=== PATIENT | female | born 1935 | race Caucasian/White ===

== ENCOUNTER 2018-02-24 11:25 | Inpatient (IN) | payer MEDICARE, MEDICAID ==
[2018-02-24 11:36] VITALS: BMI 25.4
--- NOTE | 2018-02-24 12:15 | ED PDOC ---
Arrival/HPI - General Chief Complaint: Anxiety Time Seen by Provider: 02/24/18 11:38 Historian: Patient - History of Present Illness Narrative History of Present Illness (Text): 02/24/18 12:10 A 82 year old female, whose past medical history includes AMS and hypertension, presents to the emergency department via EMS after patient's neighbor found the patient was found locked out of the house. The patient states she went to go visit her who lives in a [facility] and when she returned home she was locked out. She notes that last night she was anxious and was unable to sleep, she attempted to drink water, but was unable to keep it down. The patient is currently complaining of diffuse abdominal tenderness, no other complaints at this time. Time/Duration: 4-6 hours Symptom Onset: Gradual Symptom Course: Unchanged Severity Level: Mild Activities at Onset: Emotional Upset Context: Home Past Medical History - Provider Review Nursing Documentation Reviewed: Yes - Infectious Disease Hx of Infectious Diseases: None - Cardiac Hx Cardiac Disorders: Yes Hx Hypertension: Yes - Pulmonary Hx Respiratory Disorders: No - Neurological Hx Neurological Disorder: Yes Hx Dementia: Yes - HEENT Hx HEENT Disorder: No - Renal Hx Renal Disorder: No - Endocrine/Metabolic Hx Endocrine Disorders: Yes Hx Diabetes Mellitus Type 2: Yes - Hematological/Oncological Hx Blood Disorders: No - Integumentary Hx Dermatological Disorder: No - Musculoskeletal/Rheumatological Hx Musculoskeletal Disorders: No - Gastrointestinal Hx Gastrointestinal Disorders: Yes Hx Diarrhea: Yes - Genitourinary/Gynecological Hx Genitourinary Disorders: No - Psychiatric Hx Psychophysiologic Disorder: Yes Hx Anxiety: Yes Hx Substance Use: No - Anesthesia Hx Anesthesia: No Hx Anesthesia Reactions: No Hx Malignant Hyperthermia: No - Suicidal Assessment Feels Threatened In Home Enviroment: No Family/Social History - Physician Review Nursing Documentation Reviewed: Yes Family/Social History: No Known Family HX Smoking Status: Never Smoked Hx Alcohol Use: No Hx Substance Use: No Hx Substance Use Treatment: No Allergies/Home Meds Allergies/Adverse Reactions: Allergies amoxicillin [From Amoxil] Allergy (Verified 02/24/18 11:28) RASH ciprofloxacin Adverse Reaction (Verified 02/24/18 18:38) REDNESS Home Medications: Home Meds Medication Instructions Recorded Confirmed Calcium Carbonate [Calcium] 600 mg PO DAILY 01/17/16 02/24/18 Donepezil [Aricept] 10 mg PO DAILY 01/17/16 02/24/18 Lisinopril [Zestril] 30 mg PO DAILY 01/17/16 02/24/18 Pravastatin Sodium [Pravachol] 20 mg PO DAILY 01/17/16 02/24/18 Zolpidem [Ambien] 10 mg PO PRN PRN 01/17/16 02/24/18 Review of Systems - Physician Review All systems were reviewed & negative as marked: Yes - Review of Systems Constitutional: absent: Fevers Cardiovascular: absent: Chest Pain Gastrointestinal: Abdominal Pain Psychiatric: Anxiety Physical Exam Vital Signs Reviewed: Yes Vital Signs Temp Pulse Resp BP Pulse Ox 02/24/18 12:40 119 H 22 127/76 94 L 02/24/18 11:26 97.8 F 125 H 24 144/80 95 Temperature: Afebrile Blood Pressure: Normal Pulse: Tachycardic Respiratory Rate: Normal Appearance: Positive for: Well-Appearing, Non-Toxic, Comfortable Pain Distress: None Mental Status: Positive for: Alert and Oriented X 3 - Systems Exam Head: Present: Atraumatic, Normocephalic Pupils: Present: PERRL Extroacular Muscles: Present: EOMI Conjunctiva: Present: Normal Mouth: Present: Moist Mucous Membranes Neck: Present: Normal Range of Motion Respiratory/Chest: Present: Clear to Auscultation, Good Air Exchange. No: Respiratory Distress, Accessory Muscle Use Cardiovascular: Present: Regular Rate and Rhythm, Normal S1, S2. No: Murmurs Abdomen: Present: Tenderness (diffuse abdominal tenderness ), Distention, Other (decreased bowel sounds). No: Peritoneal Signs Back: Present: Normal Inspection Upper Extremity: Present: Normal Inspection. No: Cyanosis, Edema Lower Extremity: Present: Normal Inspection. No: Edema Neurological: Present: GCS=15, CN II-XII Intact, Speech Normal Skin: Present: Warm, Dry, Normal Color. No: Rashes Psychiatric: Present: Alert, Oriented x 3, Normal Insight, Normal Concentration Medical Decision Making ED Course and Treatment: 02/24/18 12:17 Impression: A 82 year old female with abdominal tenderness and anxiety. Differential Diagnosis included but are not limited to: Abdominal vs. Anxiety Plan: -- Abd & Pel CT -- Labs -- CXR -- Urinalysis -- Reassess and disposition Progress Notes: The patients family members have been contact and made aware of patient's condition and able to slate picker the patient from the hospital. 02/24/18 13:[address] results showing a small bowel obstruction. residential appliance repair technician was paged and case discussed with Dr. De Santiago for admission. Fluids and antibiotics have already been started. 02/24/18 16:28 Chest X-ray reviewed shows: LUNGS: No active pulmonary disease. PLEURA: No significant pleural effusion identified, no pneumothorax apparent. CARDIOVASCULAR: No radiographic findings to suggest acute or significant cardiovascular disease. OSSEOUS STRUCTURES: No significant abnormalities. VISUALIZED UPPER ABDOMEN: Normal. OTHER FINDINGS: None. IMPRESSION: No active disease. No significant interval change compared to the prior examination(s). 02/24/18 16:56 - Lab Interpretations Lab Results: 02/24/18 12:20 02/24/18 12:30 Lab Results 02/24/18 13:00: pO2 117 H, VBG pH 7.28 L, VBG pCO2 27.0 L, VBG HCO3 12.7 L, VBG Total CO2 13.5 L, VBG O2 Sat (Calc) 97.8 H, VBG Base Excess -12.4 L, VBG Potassium 3.3 L, Glucose 252 H, Lactate 9.6 H*, FiO2 21.0, Sodium 138.0, Chloride 102.0, Venous Blood Potassium 3.3 L 02/24/18 12:35: Urine Color Dark yellow, Urine Appearance Slight-cloudy, Urine pH 5.5, Ur Specific Vale 1.025, Urine Protein 100 H, Urine Glucose (UA) 100 H , Urine Ketones 15 H, Urine Blood Trace-intact H, Urine Nitrate Positive H, Urine Bilirubin Moderate H, Urine Urobilinogen 2.0 H, Ur Leukocyte Esterase Trace H, Urine RBC 0 - 2, Urine WBC 0 - 2, Ur Epithelial Cells 0 - 2, Urine Bacteria Small 02/24/18 12:30: Lactate Dehydrogenase 604, Total Creatine Kinase 81, Troponin I 0.09 D 02/24/18 12:30: Sodium 141, Potassium 3.6, Chloride 103, Carbon Dioxide 11 L, Anion Gap 30 H, BUN 31 H, Creatinine 1.1, Est GFR ( Amer) 58, Est GFR ( Non-Af Amer) 48, Random Glucose 286 H, Calcium 10.8 H, Total Bilirubin 0.9, AST 51 H, ALT 30, Alkaline Phosphatase 104, Total Protein 8.3, Albumin 4.6, Globulin 3.7, Albumin/Globulin Ratio 1.2, Lipase 72 02/24/18 12:20: WBC 14.5 H D, RBC 4.98, Hgb 15.5, Hct 45.6, MCV 91.6, MCH 31.1, MCHC 34.0, RDW 14.4, Plt Count 332, MPV 11.4 H, Gran % 89.1 H, Lymph % (Auto) 5.7 L, Lucas % (Auto) 5.1, Eos % (Auto) 0.0 L, Baso % (Auto) 0.1, Gran # 12.88 H , Lymph # (Auto) 0.8 L, Lucas # (Auto) 0.7 H, Eos # (Auto) 0.0, Baso # (Auto) 0.01 - RAD Interpretation Radiology Orders: 02/24/18 11:53 ABD & PELVIS IV CONTRAST ONLY [CT] Stat 02/24/18 13:05 CHEST PORTABLE [RAD] Stat - Medication Orders Current Medication Orders: Hydromorphone HCl (Dilaudid) 0.5 mg IVP Q4H PRN PRN Reason: Pain, severe (8-10) Last Admin: 02/24/18 18:09 Dose: 0.5 mg MAR Pain Assessment Document 02/24/18 18:09 MMA (Rec: 02/24/18 18:09 MMA ADMIN-PC) Pain Reassessment Is this a pain reassessment? No Sleep Is patient sleeping during reassessment? No Presence of Pain Presence of Pain Yes Pain Scale Used Pain Scale Used Numeric Location Left, Right or Bilateral Bilateral Upper or Lower Upper Pain Location Body Site Abdomen Description Description Intermittent Intensity of Pain at present 8 IVP Administration Document 02/24/18 18:09 MMA (Rec: 02/24/18 18:09 MMA ADMIN-PC) Charges for Administration # of IVP Administrations 1 Metronidazole (Flagyl) 500 mg in 100 mls @ 100 mls/hr IVPB Q8 CLAUDINE PRN Reason: Protocol Pantoprazole Sodium (Protonix 40mg Ivpb) 40 mg in 100 mls @ 20 mls/hr IVPB .Q5H CLAUDINE Last Admin: 02/24/18 17:41 Dose: 20 mls/hr eMAR Start Stop Document 02/24/18 17:41 MMA (Rec: 03/31/18 17:41 MMA ADMIN-PC) Intravenous Solution Start Date 02/24/18 Start Time 17:41 End Date 02/24/18 Meropenem (Merrem Iv 1 Gm Premix) 50 mls @ 100 mls/hr IVPB Q12 CLAUDINE PRN Reason: Protocol Stop: 03/05/18 21:21 Ondansetron HCl (Zofran Inj) 4 mg IVP Q4 PRN PRN Reason: Nausea/Vomiting Discontinued Medications Hydromorphone HCl (Dilaudid) 1 mg IVP STAT STA Stop: 02/24/18 21:04 Sodium Chloride (Sodium Chloride 0.9%) 1,000 mls @ 125 mls/hr IV .Q8H ONE Stop: 02/24/18 21:03 Last Admin: 02/24/18 13:44 Dose: 125 mls/hr eMAR Start Stop Document 02/24/18 13:44 SRE (Rec: 02/24/18 13:45 SRE [id number]) Intravenous Solution Start Date 02/24/18 Start Time 13:10 End Date 02/24/18 End time 17:10 Total Infusion Time 240 Sodium Chloride (Sodium Chloride 0.9%) 1,000 mls @ 999 mls/hr IV .Q1H1M STA Stop: 02/24/18 14:36 Last Admin: 02/24/18 13:46 Dose: 999 mls/hr eMAR Start Stop Document 02/24/18 13:46 SRE (Rec: 02/24/18 13:46 SRE [id number]) Intravenous Solution Start Date 02/24/18 Start Time 13:46 End Date 02/24/18 End time 14:50 Total Infusion Time 64 Ciprofloxacin (Cipro 400mg/200ml Dsw) 400 mg in 200 mls @ 133.333 mls/hr IVPB STAT STA PRN Reason: Protocol Stop: 02/24/18 15:19 Last Admin: 02/24/18 15:42 Dose: 133.333 mls/hr eMAR Start Stop Document 02/24/18 15:42 SRE (Rec: 02/24/18 15:44 SRE [id number]) Intravenous Solution Start Date 02/24/18 Start Time 15:44 End Date 02/24/18 End time 16:45 Total Infusion Time 61 Metronidazole (Flagyl) 500 mg in 100 mls @ 100 mls/hr IVPB STAT STA PRN Reason: Protocol Stop: 02/24/18 14:49 Last Admin: 02/24/18 14:24 Dose: 100 mls/hr eMAR Start Stop Document 02/24/18 14:24 SRE (Rec: 02/24/18 14:25 SRE [id number]) Intravenous Solution Start Date 02/24/18 Start Time 14:24 End Date 02/24/18 End time 15:20 Total Infusion Time 56 Ceftriaxone Sodium 500 mg/ (Sodium Chloride) 50 mls @ 100 mls/hr IVPB Q24H CLAUDINE PRN Reason: Protocol Last Admin: 02/24/18 17:41 Dose: 100 mls/hr eMAR Start Stop Document 02/24/18 17:41 MMA (Rec: 02/24/18 17:41 MMA ADMIN-PC) Intravenous Solution Start Date 02/24/18 Start Time 17:41 End Date 02/24/18 End time 18:11 Total Infusion Time 30 Ketorolac Tromethamine (Toradol) 15 mg IVP STAT STA Stop: 02/24/18 15:15 Last Admin: 02/24/18 15:44 Dose: 15 mg MAR Pain Assessment Document 02/24/18 15:44 SRE (Rec: 02/24/18 15:45 SRE [id number]) Pain Reassessment Is this a pain reassessment? Yes Sleep Is patient sleeping during reassessment? No Presence of Pain Presence of Pain Yes Pain Scale Used Pain Scale Used Numeric Location Pain Location Body Site Abdomen IVP Administration Document 02/24/18 15:44 SRE (Rec: 02/24/18 15:45 SRE [id number]) Charges for Administration # of IVP Administrations 1 Methylprednisolone (Solu-Medrol) 100 mg IVP ONCE ONE Stop: 02/24/18 18:44 Last Admin: 02/24/18 18:54 Dose: 100 mg IVP Administration Document 02/24/18 18:54 MMA (Rec: 02/24/18 18:54 MMA ADMIN-PC) Charges for Administration # of IVP Administrations 1 Sodium Bicarbonate (Sodium Bicarbonate 8.4% (50 Meq) Syringe) 50 meq IVP ONCE ONE Stop: 02/24/18 17:21 Last Admin: 02/24/18 17:40 Dose: 50 meq IVP Administration Document 02/24/18 17:40 MMA (Rec: 02/24/18 17:40 [facility] ADMIN-PC) Charges for Administration # of IVP Administrations 1 - Scribe Statement The provider has reviewed the documentation as recorded by the Crowib[place]ul Singer Provider Scribe Attestation: All medical record entries made by the Scribe were at my direction and personally dictated by me. I have reviewed the chart and agree that the record accurately reflects my personal performance of the history, physical exam, medical decision making, and the department course for this patient. I have also personally directed, reviewed, and agree with the discharge instructions and disposition. Disposition/Present on Arrival - Present on Arrival Any Indicators Present on Arrival: No History of DVT/PE: No History of Uncontrolled Diabetes: No Urinary Catheter: No History of Decub. Ulcer: No History Surgical Site Infection Following: None - Disposition Have Diagnosis and Disposition been Completed?: Yes Diagnosis: Small bowel obstruction, Sepsis Disposition: HOSPITALIZED Disposition Time: 13:45 Condition: GUARDED
[2018-02-24 12:42] LABS: BASO # 0.01 K/mm3 (0.0-2.0); BASO % 0.1 % (0.0-3.0); GRAN # 12.88 (1.4-6.5); GRAN % 89.1 % (50.0-68.0); HEMOGLOBIN 15.5 g/dL (12.0-16.0); LYMPH # 0.8 (1.2-3.4); LYMPH % 5.7 % (22.0-35.0); MEAN CELL VOLUME 91.6 fl (80.0-105.0); MEAN CORPUSCULAR HEMOGLOBIN 31.1 pg (25.0-35.0); MEAN PLATELET VOLUME 11.4 fl (7.0-11.0); MONO # 0.7 (0.1-0.6); MONO % 5.1 % (1.0-6.0); RBC 4.98 10^6/uL (3.5-6.1); RED CELL DISTRIBUTION WIDTH 14.4 % (11.5-14.5); WHITE BLOOD COUNT 14.5 10^3/ul (4.5-11.0)
[2018-02-24 12:56] LABS: ALB/GLOB RATIO 1.2 (1.1-1.8); ALBUMIN 4.6 g/dL (3.0-4.8); CALCIUM 10.8 mg/dL (8.4-10.5)
[2018-02-24 13:00] LABS: PH,URINE 5.5 (4.7-8.0); URINE BILIRUBIN MODERATE (NEGATIVE); URINE BLOOD TRACE-INTACT (NEGATIVE); URINE GLUCOSE (UA) 100 mg/dL (NEGATIVE); URINE LEUKOCYTE ESTERASE TRACE Leu/uL (NEGATIVE); URINE PROTEIN 100 mg/dL (<30 mg/dL)
[2018-02-24] MEDS ORDERED: Sodium Chloride 0.9% 1,000 ML IV ONE (13:04)
[2018-02-24 13:07] LABS: URINE APPEARANCE SLIGHT-CLOUDY (CLEAR); URINE COLOR DARK YELLOW (YELLOW)
[2018-02-24] MEDS ORDERED: Iodixanol 320 MG/ML 100 ML BOTTLE IV ONE (13:08)
[2018-02-24 13:15] LABS: URINE BACTERIA SMALL (NEG); URINE EPITHELIAL CELLS 0 - 2 /hpf (0-5); URINE RBC 0 - 2 /hpf (0-2); URINE WBC 0 - 2 /hpf (0-6)
[2018-02-24 13:24] LABS: VENOUS BLOOD GAS BASE EXCESS -12.4 mmol/L (0.0-2.0); VENOUS BLOOD GAS PO2 117 mm/Hg (30-55); VENOUS BLOOD PH 7.28 (7.32-7.43)
[2018-02-24] MEDS ORDERED: Sodium Chloride 0.9% 1,000 ML IV STA (13:36)
--- NOTE | 2018-02-24 13:41 | PCM.SEPTIC ---
Sepsis Progress Note - Reassessment Type Reassessment Type: Non-invasive reassessment - Non Invasive Reassessment Were the most recent vital sign reviewed: Yes Vital Sign (Latest): Temp Pulse Resp BP Pulse Ox 97.8 F 119 H 22 127/76 94 L 02/24/18 11:26 02/24/18 12:40 02/24/18 12:40 02/24/18 12:40 02/24/18 12:40 Cardiovascular: Yes: Regular Rate, Rhythm Respiratory: Yes: Normal Breath Sounds Capillary Refill: Normal (Less than 2 sec) Skin: Normal Color
[2018-02-24 13:49] LABS: TROPONIN I 0.09 ng/mL
[2018-02-24] MEDS ORDERED: metroNIDAZOLE IV 500 mg/100 ml 500 MG/100 ML BAG IVPB STA (13:50)
[2018-02-24] MEDS ORDERED: Ciprofloxacin 400mg/200ml D5W 400 MG/200 ML BAG IVPB STA (13:50)
--- NOTE | 2018-02-24 13:58 | CT ---
PROCEDURE: CT Abdomen and Pelvis with contrast HISTORY: Diffuse abdominal pain, vomiting Relevant medical history: Sigmoid diverticulitis. COMPARISON: 01/27/2016. TECHNIQUE: Contrast dose: 100 cc Visipaque 320. Radiation dose: Total exam DLP = 412.66 mGy-cm. This CT exam was performed using one or more of the following dose reduction techniques: Automated exposure control, adjustment of the mA and/or kV according to patient size, and/or use of iterative reconstruction technique. FINDINGS: LOWER THORAX: Hiatal hernia, thickening of the intrathoracic extension of the stomach which may reflect a component of mild gastritis/ esophagitis. LIVER: Hepatic steatosis. No focal masses. No intrahepatic bile duct dilatation or perihepatic ascites. GALLBLADDER AND BILE DUCTS: Dilated gallbladder. PANCREAS: Mildly atrophic pancreas. . No gross lesion or ductal dilatation. SPLEEN: Unremarkable. ADRENALS: Unremarkable. No mass. KIDNEYS AND URETERS: Unremarkable. No hydronephrosis. No solid mass. Incidental finding(s): Multiple small bilateral renal cysts none larger than 1.5 cm. VASCULATURE: Unremarkable. No aortic aneurysm. BOWEL: Segmental narrowing of the sigmoid colon with proximal dilatation of colon and small bowel including an obstructing component. Proximally the small bowel of is disproportionally dilated and small bowel dilatation is also seen. APPENDIX: Normal appendixA normal appendix is not visualized. . PERITONEUM: Unremarkable. No free fluid. No free air. LYMPH NODES: Unremarkable. No enlarged lymph nodes. BLADDER: Unremarkable. REPRODUCTIVE: Unremarkable. Cystic fluid collection in the cul-de-sac/vicinity of left adnexa 2.7 x 4.6 cm. BONES: Mild loss of height L2 vertebral body progressive finding compared to the prior CT scan. L1 vertebral body hemangioma. OTHER FINDINGS: None. IMPRESSION: Segmental narrowing of the sigmoid at a site of prior diverticular disease/ diverticulitis. Proximal dilatation of the colon and small bowel identified indicative of earlier incomplete bowel obstruction. Underlying stricture, pathologic narrowing of the sigmoid should be considered. Additional benign and/or incidental findings described above. Communication of results: I discussed the findings with the attending physician in the emergency department Dr. Puneet Willis at 13:53 Final report available in the electronic medical record 13:59
--- NOTE | 2018-02-24 14:00 | RAD ---
HISTORY: r/o infiltrate COMPARISON: 01/17/2016 FINDINGS: LUNGS: No active pulmonary disease. PLEURA: No significant pleural effusion identified, no pneumothorax apparent. CARDIOVASCULAR: No radiographic findings to suggest acute or significant cardiovascular disease. OSSEOUS STRUCTURES: No significant abnormalities. VISUALIZED UPPER ABDOMEN: Normal. OTHER FINDINGS: None. IMPRESSION: No active disease. No significant interval change compared to the prior examination(s).
--- NOTE | 2018-02-24 15:38 | CARD ---
APPROVED REPORT EKG Measurement Heart [id number] <Conclusion> Sinus tachycardia Nonspecific ST abnormality Abnormal ECG
[2018-02-24] MEDS ORDERED: HYDROmorphone 0.5 mg/0.5 ml ISec IVP PRN (15:41)
--- NOTE | 2018-02-24 15:55 | CP.PCM.CON ---
History of Present Illness - History of Present Illness History of Present Illness: surgery 82 F w pmh of diverticulitis, SBO , laparoscopic incarcerated umbilical hernia repair with mesh came with sudden abdominal pain, nausea and vomiting that started yesterday. Pain is diffused. Pt also reports hematuria. Pt reports anorexia. Last BM was diarrhea yesterday. Non bloody. Pt had laparoscopic abdominal surgery in 2011 for incarcerated umbilical hernia. Pt takes Naproxen for pain. Denies fever, chills, chest pain, shortness of breath, hematochezia, recent weight loss. Reports that she had colonoscopy done in the past and was normal. She is tachycardic, WBC is 14.5. Lactate was 9.6. CT of abd shows narrowing on sigmoid colon with thicken wall, dilated SB and colon. NGT is placed in ED. put out about 300cc coffee ground color gasgtric fluids. PMH HTN PSH: laparoscpic hernia repair w mesh 2011 Med: Naproxen All: Amoxicillin Review of Systems - Review of Systems Review of Systems: see phi Past Patient History - Infectious Disease Hx of Infectious Diseases: None - Past Social History Smoking Status: Never Smoked - CARDIAC Hx Cardiac Disorders: Yes Hx Hypertension: Yes - PULMONARY Hx Respiratory Disorders: No - NEUROLOGICAL Hx Neurological Disorder: Yes Hx Dementia: Yes - HEENT Hx HEENT Problems: No - RENAL Hx Chronic Kidney Disease: No - ENDOCRINE/METABOLIC Hx Endocrine Disorders: Yes Hx Diabetes Mellitus Type 2: Yes - HEMATOLOGICAL/ONCOLOGICAL Hx Blood Disorders: No - INTEGUMENTARY Hx Dermatological Problems: No - MUSCULOSKELETAL/RHEUMATOLOGICAL Hx Musculoskeletal Disorders: No - GASTROINTESTINAL Hx Gastrointestinal Disorders: Yes Hx Diarrhea: Yes - GENITOURINARY/GYNECOLOGICAL Hx Genitourinary Disorders: No - PSYCHIATRIC Hx Psychophysiologic Disorder: Yes Hx Anxiety: Yes Hx Substance Use: No - SURGICAL HISTORY Hx Surgeries: No - ANESTHESIA Hx Anesthesia: No Hx Anesthesia Reactions: No Hx Malignant Hyperthermia: No Meds Allergies/Adverse Reactions: Allergies Allergy/AdvReac Type Severity Reaction Status Date / Time amoxicillin [From Amoxil] Allergy RASH Verified 02/24/18 11:28 - Medications Medications: Current Medications Hydromorphone HCl (Dilaudid) 0.5 mg IVP Q4H PRN PRN Reason: Pain, severe (8-10) Sodium Chloride (Sodium Chloride 0.9%) 1,000 mls @ 125 mls/hr IV .Q8H ONE Stop: 02/24/18 21:03 Last Admin: 02/24/18 13:44 Dose: 125 mls/hr Physical Exam - Constitutional Appears: In Acute Distress - Head Exam Head Exam: ATRAUMATIC, NORMAL INSPECTION, NORMOCEPHALIC - Eye Exam Eye Exam: EOMI, Normal appearance, PERRL Pupil Exam: NORMAL ACCOMODATION, PERRL - ENT Exam ENT Exam: Mucous Membranes Moist, Normal Exam Additional comments: NGT - Neck Exam Neck exam: Positive for: Normal Inspection - Respiratory Exam Respiratory Exam: Clear to Auscultation Bilateral, NORMAL BREATHING PATTERN - Cardiovascular Exam Cardiovascular Exam: Tachycardia, REGULAR RHYTHM - GI/Abdominal Exam GI & Abdominal Exam: Distended, Firm, Guarding, Tenderness. absent: Hernia, Mass, Soft - Rectal Exam Rectal Exam: NORMAL INSPECTION. absent: Black Stool, Bloody Stool, Hemorrhoids , Fecal Impaction Additional comments: normal tone, no mass palpable - Exam Exam: NORMAL INSPECTION - Extremities Exam Extremities exam: Positive for: full ROM, normal inspection - Back Exam Back exam: NORMAL INSPECTION - Neurological Exam Neurological exam: Alert, CN II-XII Intact, Normal Gait, Oriented x3, Reflexes Normal - Psychiatric Exam Psychiatric exam: Normal Affect, Normal Mood - Skin Skin Exam: Dry, Intact, Normal Color, Warm Results - Vital Signs Recent Vital Signs: Last Vital Signs Temp 97.8 F 02/24/18 11:26 Pulse 119 H 02/24/18 12:40 Resp 22 02/24/18 12:40 BP 127/76 02/24/18 12:40 Pulse Ox 94 L 02/24/18 12:40 - Labs Result Diagrams: 02/24/18 12:20 02/24/18 12:30 Assessment & Plan - Assessment and Plan (Free Text) Assessment: Bowel obstruction with circumferential sigmoid narrowing and w h/o abd surgery . can't r/o near obstructing colon mass She is tachycardic, WBC is 14.5. Lactate was 9.6. CT of abd shows narrowing on sigmoid colon with thicken wall, dilated SB and colon. -ICU management -Strict intake and ouput -NPO -IVF -ABX -GI consult to evaluate for circumferencial sigmoid wall thickening and narrowing -NGT to suction -Serial abdominal exam Will dW Dr. Pérez
[2018-02-24] MEDS ORDERED: Lidocaine 2% Jelly (Uro-Jet) TOP ONE (16:14)
[2018-02-24 16:34] LABS: VENOUS BLOOD GAS BASE EXCESS -13.5 mmol/L (0.0-2.0); VENOUS BLOOD GAS PO2 57 mm/Hg (30-55)
[2018-02-24 16:41] LABS: VENOUS BLOOD PH 7.19 (7.32-7.43)
--- NOTE | 2018-02-24 16:50 | RAD ---
HISTORY: NGT placement COMPARISON: February 24, 2018. Time of the most recent examination: 13:36 FINDINGS: LUNGS: No active pulmonary disease. PLEURA: No significant pleural effusion identified, no pneumothorax apparent. CARDIOVASCULAR: No radiographic findings to suggest acute or significant cardiovascular disease. OSSEOUS STRUCTURES: No significant abnormalities. VISUALIZED UPPER ABDOMEN: Normal. OTHER FINDINGS: Nasogastric tube in the distal esophagus. The finding is marked on the study for review. IMPRESSION: Improperly positioned nasogastric tube in the distal esophagus.
[2018-02-24] MEDS ORDERED: cefTRIAXone 500 MG in Sodium Chloride 0.9% 50 ML IVPB SCH (17:00)
[2018-02-24] MEDS ORDERED: Sodium Bicarbonate (8.4%) 50 Meq Syringe IVP ONE (17:20)
--- NOTE | 2018-02-24 17:32 | RAD ---
HISTORY: ngt placement COMPARISON: No prior. FINDINGS: LUNGS: No active pulmonary disease. PLEURA: No significant pleural effusion identified, no pneumothorax apparent. CARDIOVASCULAR: No radiographic findings to suggest acute or significant cardiovascular disease. OSSEOUS STRUCTURES: No significant abnormalities. VISUALIZED UPPER ABDOMEN: Normal. OTHER FINDINGS: Nasogastric tube now courses through a tortuous esophagus into a decompressed stomach in good position. IMPRESSION: Satisfactory repositioning nasogastric tube.
[2018-02-24] MEDS: Pantoprazole 40mg/100mL NS 40 MG/100 ML BAG IVPB SCH (17:41)
[2018-02-24 19:14] LABS: ARTERIAL BLOOD GAS HCO3 12.9 mmol/L (21-28); ARTERIAL BLOOD GAS HEMOGLOBIN 14.5 g/dL (11.7-17.4); ARTERIAL BLOOD GAS O2 CAPACITY 19.9 mL/dl (16-24); ARTERIAL BLOOD GAS O2 CONTENT 18.9 ML/dl (15-23); ARTERIAL BLOOD GAS O2 SAT 94.8 % (95-98); ARTERIAL BLOOD GAS PCO2 25 mm/Hg (35-45); ARTERIAL BLOOD GAS PH 7.32 (7.35-7.45); ARTERIAL BLOOD GAS TCO2 13.7 mmol.L (22-28)
[2018-02-24 19:34] LABS: BASO # 0.01 K/mm3 (0.0-2.0); BASO % 0.2 % (0.0-3.0); GRAN # 4.45 (1.4-6.5); GRAN % 72.1 % (50.0-68.0); HEMOGLOBIN 15.9 g/dL (12.0-16.0); LYMPH # 1.2 (1.2-3.4); LYMPH % 19.9 % (22.0-35.0); MEAN CELL VOLUME 91.9 fl (80.0-105.0); MEAN CORPUSCULAR HEMOGLOBIN 31.3 pg (25.0-35.0); MEAN PLATELET VOLUME 11.3 fl (7.0-11.0); MONO # 0.5 (0.1-0.6); MONO % 7.8 % (1.0-6.0); RBC 5.08 10^6/uL (3.5-6.1); RED CELL DISTRIBUTION WIDTH 14.7 % (11.5-14.5); WHITE BLOOD COUNT 6.2 10^3/ul (4.5-11.0)
[2018-02-24 19:53] LABS: ALB/GLOB RATIO 1.1 (1.1-1.8); ALBUMIN 3.8 g/dL (3.0-4.8); CALCIUM 9.7 mg/dL (8.4-10.5)
[2018-02-24] MEDS ORDERED: HYDROmorphone 1 mg/ml ISec IVP STA (21:01)
[2018-02-24] MEDS ORDERED: HYDROmorphone 0.5 mg/0.5 ml ISec IVP STA (21:03)
[2018-02-24] MEDS ORDERED: Etomidate 20 mg/10ml Inj IV ONE (21:30)
--- NOTE | 2018-02-24 23:23 | CON ---
DATE: 02/24/2018 DIRECTOR INDUSTRIAL NURSING CONSULT REQUESTING PHYSICIAN: Dr. Naranjo. CHIEF COMPLAINT: The patient presented with abdominal pain, some nauseousness and vomiting. HISTORY OF PRESENT ILLNESS: Ms. Felder is an 82-year-old female that speaks no Lao and she presented with abdominal pain, some nauseousness and vomiting starting yesterday. The pain is diffuse and no fever, chills at this time. The patient has a past history of diverticulitis, small bowel obstruction as well as a laparoscopic incarcerated umbilical hernia repair with mesh. NG tube was placed in the ER and coffee-ground material of 300 mL was retrieved. The patient also reported that she has had some hematuria at home. She has had anorexia and had some diarrhea yesterday, which was nonbloody. Note that the patient's laparoscopic abdominal surgery was back in 2011. It is noted at this time, the patient is awake and alert. It is noted that she is tachycardic with a lactate of 9.6, and CT scan of the chest did reveal small bowel obstruction. PAST MEDICAL HISTORY: Significant for hypertension, diabetes and dementia and above noted that the past abdominal surgery for the umbilical hernia as well as the diverticulitis. ALLERGIES: AMOXICILLIN. MEDICATION: Naproxen. SOCIAL HISTORY: She has no history of smoking, EtOH abuse or drug abuse. FAMILY HISTORY: Noncontributory. REVIEW OF SYSTEMS: Unable to assess, the patient speaks Danish. PHYSICAL EXAMINATION: VITAL SIGNS: Note that her temperature is 97.8, her pulse is 119, respirations are 18, BP is 123/80, temperature is 97.8, O2 saturation on room air is 94%. HEENT: Head is atraumatic, normocephalic. Eyes reactive to light. Ear, nose and throat seemed to be within normal limits. NECK: Supple. No JVD. No thyroid enlargement. No lymph nodes. HEART: Has regular rate and rhythm. Normal S1, S2, but tachycardic. LUNGS: Reveal good breath sounds bilaterally. ABDOMEN: Soft but distended, tender to mild on palpation and significantly decreased bowel sounds. GENITALIA: Deferred. RECTAL: Deferred. MUSCULOSKELETAL: No joint deformities. EXTREMITIES: Reveal no significant edema. NEUROLOGICAL: The patient seemed to be grossly intact. LABORATORIES AND DIAGNOSTIC STUDIES: Her white count is 14.5, hemoglobin is 15.5, hematocrit 45.6 with platelets of 332,000. The patient's venous blood gas reveals pH of 7.19, pCO2 of 36 and O2 of 57. The patient's sodium is 141, potassium 3.6, chloride 103, CO2 of 11 with a BUN of 31, creatinine of 1.1, and a glucose of 286. The patient's chest x-ray reveals no infiltrates and her CT of the abdomen reveals that there is a segmental narrowing in the sigmoid areas where there was prior diverticular disease or diverticulitis. There is incomplete bowel obstruction and possibly underlying stricture narrowing of the sigmoid should be considered. IMPRESSION: This patient has partial small bowel obstruction with gastrointestinal bleed and is noted to have gastritis/esophagitis. She has sigmoid stricture and history of diverticulitis. The patient has a hiatal hernia and tachycardia and history of diabetes, dementia and hypertension. She has metabolic acidosis and possible sepsis. PLAN: We will get a GI consult. Surgery has consulted and we will follow up with them closely. She is on Rocephin as an antibiotic and metronidazole. The patient is getting IV fluids and is on O2 via nasal cannula. She has NG tube in place to suction and surgical consult is recommending strict I and O's n.p.o., continue with IV fluids and antibiotics and NG tube to suction. Serial abdominal exams as well. We will follow and continue to treat aggressively along with the other consultants and the primary care doctor. Yeyo Estrada MD
[2018-02-24] MEDS: NOREPINEPHRINE BIT/0.9 % NACL 4 MG/250 ML BAG IV PRN (23:25)
--- NOTE | 2018-02-24 23:36 | CP.PCM.PN ---
<Shaq Dorsey - Last Filed: 02/24/18 23:22> Subjective - Date & Time of Evaluation Date of Evaluation: 02/24/18 Time of Evaluation: 22:00 - Subjective Subjective: Shaq Dorsey D.O. PGY-2, Internal Medicine, [facility] Note 82 year old female was evaluated while in the ICU. Noted to have de-saturations in the 70s. Mentation worsened per nursing and respiratory therapy. Patient wide eyes staring off into space, appears to hear loud noises, does turn to loud noises. Discussed current situation with sister Tamara who then got in contact with the daughter who stated that she wanted everything done and, due to the fact that she is in [place], wanted her aunt Tamara to be able to make any decisions. Upon return to room [facility] was called immediately. ACLS protocol was followed. Multiple rounds of quality CPR ensued. Patient received epinephrine every 3-4 minutes per protocol. Two does of bicarb were also given. During the code patient was intubated using 7.5 ET. Red/brown mucosoid secretions noted during insertion similar to those seen in NG tube. Patient had ROSC after multiple rounds of CPR and aforementioned medications. Immediate CXR was available and showed complete whiteout of the left lung with the tube in the right mainstem bronchus. Tube was re-tracted to 19cm and there was improvement of left lung field visualization with subsequent improvement of O2Sat. Right IJ CVC was placed under ultrasound guidance. Attempt was made to insert arterial line however patient was noted to have bradycardia of 30-40 and when pulse was checked was noted to not be present. Second Tigre cuenca was called. Arterial line was aborted. ACLS protocol was again followed with immediate dose of epinephrine at 1103pm and another dose at 1106. Patient was able to obtain ROSC once again after this high quality CPR and ACLS protocol. Surgical team at bedside. Call OR team has been summoned and patient will be going to OR for SBO. Patient started on levophed drip through central line. Objective - Vital Signs/Intake and Output Vital Signs (last 24 hours): Temp Pulse Resp BP Pulse Ox 100.2 F H 118 H 27 H 123/80 95 02/24/18 18:11 02/24/18 19:00 02/24/18 19:00 02/24/18 17:42 02/24/18 19:00 - Medications Medications: Current Medications Hydromorphone HCl (Dilaudid) 0.5 mg IVP Q4H PRN PRN Reason: Pain, severe (8-10) Last Admin: 02/24/18 18:09 Dose: 0.5 mg Metronidazole (Flagyl) 500 mg in 100 mls @ 100 mls/hr IVPB Q8 CLAUDINE PRN Reason: Protocol Pantoprazole Sodium (Protonix 40mg Ivpb) 40 mg in 100 mls @ 20 mls/hr IVPB .Q5H CLAUDINE Last Admin: 02/24/18 17:41 Dose: 20 mls/hr Meropenem (Merrem Iv 1 Gm Premix) 50 mls @ 100 mls/hr IVPB Q12 CLAUDINE PRN Reason: Protocol Stop: 03/05/18 21:21 NOREPINEPHRINE BIT/0.9 % NACL (Levophed 4 Mg/ 250 Ml Ns Premixed) 4 mg in 250 mls @ 15 mls/hr IV .[id number] PRN; Protocol; 4 MCG/MIN PRN Reason: TITRATE PER MD ORDER Ondansetron HCl (Zofran Inj) 4 mg IVP Q4 PRN PRN Reason: Nausea/Vomiting - Labs Labs: 02/24/18 19:27 02/24/18 19:27 Procedures Attestation:: I certify that I have explained the specified Operation(s) or Procedure(s), risks, benefits and reasonable alternatives to the Patient and/or other person responsible. The opportunity was given to ask questions and all questions answered - Central Line Placement Right Internal Jugular Triple Lumen Catheter Aseptic technique was employed throughout the procedure: Hand Hygiene done prior to procedure, Full sterile barriers (mask, hair cover, sterile gown, sterile gloves), Full body sterile drape, Chloraprep Antiseptic: 30 second prep for IJ or SC sites CVP Time Out Performed: Yes Pt. Placed on Pulse Ox Monitor: Yes Central Line Prep: Chlorhexidine-Alcohol Combination Ultrasound Used for Placement: Yes Central Line Lumen Inserted: triple Central Line Length: 20 cm Post Procedure: Sutured in Place, Good Blood Return, All Ports Aspirated, Flushed, Capped, Sterile Dressing Applied Secured by: Securement device (and suture) Post procedure dressing: Clear vapor permeable, Chlorhexidine disc (Biopatch) Post Procedure X-Ray: Yes Patient Tolerated Procedure: Well, No Complications Immediate Complications: None - Intubation Sedative: None Laryngoscope: Katie ET Tube Size: 7.5 ET Tube Secured at Depth: 19 ET Tube Secured Locarion: Teeth ET Tube Placement Confirmation: Visualized Passing Through Cords, Breath Sounds Equal Bilaterally, No Breath Sounds Over Epigastrum, Confirmation w/Capnometry Patient Tolerated Procedure: Well Procedure Immediate Complications: None <Patrice Houston MD - Last Filed: 02/26/18 13:13> Objective - Vital Signs/Intake and Output Vital Signs (last 24 hours): Temp Pulse Resp BP Pulse Ox 91.6 F L 20 L 16 103/66 73 L 02/26/18 04:37 02/26/18 04:37 02/25/18 07:31 02/26/18 04:14 02/26/18 04:04 Intake and Output: 02/26/18 02/26/18 06:59 18:59 Intake Total 3154 Output Total 540 Balance 2614 - Labs Labs: 02/26/18 01:50 02/25/18 08:00 PT 28.1 SECONDS (9.4-12.5) H 02/25/18 12:00 INR 2.40 (0.93-1.08) H 02/25/18 12:00 APTT 30.7 Seconds (25.1-36.5) 02/25/18 12:00 Attending/Attestation - Attestation I have personally seen and examined this patient.: Yes I have fully participated in the care of the patient.: Yes I have reviewed all pertinent clinical information, including history, physical exam and plan: Yes Notes (Text): -Of note, after ROSC, patient completely unresponsive (not even withdrawing to pain) -However, patient was not a candidate for hypothermia protocol because she was urgently taken to the OR shortly after the CODE BLUE
[2018-02-24] MEDS: Meropenem IV 1 gm in NS 50 ML IVPB SCH ×2 (23:55)
[2018-02-24] MEDS ORDERED: Rocuronium 10 mg/ml (5 ml) ONE (23:57)
[2018-02-24] MEDS ORDERED: Bupivacaine 0.5% Inj(30mL) ONE (23:58)
[2018-02-25] MEDS ORDERED: Liquid Adhesive TOP ONE (00:27)
[2018-02-25] MEDS ORDERED: Oxychlorosene Topical 2 gm Packet TOP ONE (01:17)
[2018-02-25] MEDS ORDERED: Rocuronium 10 mg/ml (5 ml) ONE (01:26)
--- NOTE | 2018-02-25 02:22 | PCM.SURG1 ---
Surgeon's Initial Post Op Note - Surgeon's Notes Surgeon: Dr. Pérez Mobile Nurse: Reina Sanders PGY2 Type of Anesthesia: General Endo Pre-Operative Diagnosis: septic shock 2/2 bowel obstruction Operative Findings: necrotic dilated colon and small bowel, adhesions, occluding fibrotic sigmoid lesion Post-Operative Diagnosis: bowel obstruction Operation Performed: Exploratory laparotomy subtotal small bowel resection subtotal colectomy, creation of jejunostomy Specimen/Specimens Removed: small bowel(3m) and colon Estimated Blood Loss: EBL {In ML}: 100 Blood Products Given: N/A Drains Used: Karson Post-Op Condition: Critical Date of Surgery/Procedure: 02/25/18 Time of Surgery/Procedure: 02:26
[2018-02-25] MEDS ORDERED: Lactated Ringer's 1,000 ML IV SCH (02:45)
[2018-02-25] MEDS: metroNIDAZOLE IV 500 mg/100 ml 500 MG/100 ML BAG IVPB SCH ×4 (04:22→23:00)
[2018-02-25] MEDS: Pantoprazole 40mg/100mL NS 40 MG/100 ML BAG IVPB SCH ×5 (04:26→19:59)
[2018-02-25 06:41] VITALS: RESP 16
[2018-02-25] MEDS: NOREPINEPHRINE BIT/0.9 % NACL 4 MG/250 ML BAG IV PRN ×2 (06:49→11:56)
--- NOTE | 2018-02-25 06:52 | CON ---
DATE: HISTORY OF PRESENT ILLNESS: The patient was admitted from the emergency room to the ICU because of sepsis, will release from the sepsis protocol. CAT scan is done and personally reviewed showing dilated loops of small bowel, dilated colon, thick-walled sigmoid colon; however, there is gas behind it and she was admitted complaining of diarrhea, and in addition, diffuse abdominal pain and some vomiting. On admission, the white count is 100.2. Pulse between 110 and 130. Respiratory rate 14 to 30. O2 sat 93. She is 130 pounds. LABORATORY DATA: Shows a white count initially of 14, now 16; hemoglobin 15, platelet count is normal at 255. There is acidosis on the blood gas with lactate of 9 base excess of -11. BUN elevated at 41 and anion gap of 28. Glucose 158. Troponin is normal. Liver functions, slight elevation of AST. CAT scan shows partial obstruction, earlier and incomplete. PHYSICAL EXAMINATION: GENERAL: Is noted that she speaks Pashto, but is confused. She had a CAT scan several years ago showing diffuse atrophy. She is anxious speaking to a relative, but otherwise alert and awake. CHEST: Clear. HEART: Without any murmur. ABDOMEN: Diffusely distended without apparent scar although there is a history of a herniorrhaphy done by Dr. Luo. EXTREMITIES: No clubbing, cyanosis, or edema. IMPRESSION: Partial obstruction, currently and incomplete. We will treat conservatively with an nasogastric tube, IV antibiotics and fluids. She is dehydrated, and I have encouraged more aggressive fluids resuscitation. Sonu Pérez MD
[2018-02-25 07:27] LABS: ARTERIAL BLOOD GAS O2 SAT 97.9 % (95-98); ARTERIAL BLOOD GAS PCO2 22 mm/Hg (35-45)
[2018-02-25 07:35] LABS: BASO # 0.02 K/mm3 (0.0-2.0); BASO % 0.4 % (0.0-3.0); GRAN # 4.39 (1.4-6.5); GRAN % 79.1 % (50.0-68.0); LYMPH # 0.9 (1.2-3.4); LYMPH % 15.3 % (22.0-35.0); MEAN CELL VOLUME 93.4 fl (80.0-105.0); MEAN CORPUSCULAR HEMOGLOBIN 30.7 pg (25.0-35.0); MEAN CORPUSCULAR HGB CONC 32.9 g/dl (31.0-37.0); MEAN PLATELET VOLUME 11.4 fl (7.0-11.0); MONO # 0.3 (0.1-0.6); MONO % 5.2 % (1.0-6.0); RBC 3.91 10^6/uL (3.5-6.1); RED CELL DISTRIBUTION WIDTH 15.3 % (11.5-14.5); WHITE BLOOD COUNT 5.6 10^3/ul (4.5-11.0)
[2018-02-25] MEDS ORDERED: Sodium Bicarbonate (8.4%) 50 Meq Syringe IVP ONE ×3 (07:37→18:15)
[2018-02-25 07:40] LABS: ARTERIAL BLOOD GAS HCO3 7.3 mmol/L (21-28); ARTERIAL BLOOD GAS PH 7.13 (7.35-7.45)
--- NOTE | 2018-02-25 07:46 | CP.PCM.PN ---
Subjective - Date & Time of Evaluation Date of Evaluation: 02/25/18 Time of Evaluation: 07:43 - Subjective Subjective: General Surgery- Dr. Pérez Pt S&E at bedside. Intubated on PRVC 100 5 16 450. On Levophed. Pt does not respond to commands. Family at bedside, discussed patient status in detail. Objective - Vital Signs/Intake and Output Vital Signs (last 24 hours): Temp Pulse Resp BP Pulse Ox 96.5 F L 110 H 16 195/96 H 98 02/25/18 06:47 02/25/18 06:30 02/25/18 06:30 02/25/18 06:07 02/25/18 06:30 Intake and Output: 02/25/18 02/25/18 06:59 18:59 Intake Total 250 Balance 250 - Medications Medications: Current Medications Enoxaparin Sodium (Lovenox) 30 mg SC DAILY CLAUDINE PRN Reason: Protocol Hydromorphone HCl (Dilaudid) 0.5 mg IVP Q4H PRN PRN Reason: Pain, severe (8-10) Last Admin: 02/24/18 18:09 Dose: 0.5 mg Metronidazole (Flagyl) 500 mg in 100 mls @ 100 mls/hr IVPB Q8 CLAUDINE PRN Reason: Protocol Last Admin: 02/25/18 05:29 Dose: 100 mls/hr Pantoprazole Sodium (Protonix 40mg Ivpb) 40 mg in 100 mls @ 20 mls/hr IVPB .Q5H CLAUDINE Last Admin: 02/25/18 04:28 Dose: 20 mls/hr Meropenem (Merrem Iv 1 Gm Premix) 50 mls @ 100 mls/hr IVPB Q12 CLAUDINE PRN Reason: Protocol Stop: 03/05/18 21:21 Last Admin: 02/24/18 23:55 Dose: 100 mls/hr NOREPINEPHRINE BIT/0.9 % NACL (Levophed 4 Mg/ 250 Ml Ns Premixed) 4 mg in 250 mls @ 15 mls/hr IV .[id number] PRN; Protocol; 4 MCG/MIN PRN Reason: TITRATE PER MD ORDER Last Admin: 02/25/18 06:49 Dose: 9.01 mcg/min, 33.788 mls/hr Lactated Ringer's (Lactated Ringer's) 1,000 mls @ 100 mls/hr IV .Q10H CLAUDINE Last Admin: 02/25/18 04:18 Dose: 100 mls/hr Sodium Bicarbonate 75 meq/ (Sodium Chloride) 1,075 mls @ 100 mls/hr IV .[id number] [facility] Ondansetron HCl (Zofran Inj) 4 mg IVP Q4 PRN PRN Reason: Nausea/Vomiting Sodium Bicarbonate (Sodium Bicarbonate 8.4% (50 Meq) Syringe) 50 meq IVP ONCE ONE Stop: 02/25/18 07:38 - Labs Labs: 02/25/18 07:00 02/24/18 19:27 - Constitutional Appears: Non-toxic, No Acute Distress - Head Exam Head Exam: ATRAUMATIC - Eye Exam Eye Exam: absent: EOMI - ENT Exam ENT Exam: Mucous Membranes Moist - Respiratory Exam Additional comments: Intubated on PRVC - Cardiovascular Exam Cardiovascular Exam: Tachycardia, +S1, +S2 - GI/Abdominal Exam GI & Abdominal Exam: Soft Additional comments: ABD dressing C/D/I Karson output 100cc serosang Jejunostomy dusky, patent, no output - Extremities Exam Extremities Exam: absent: Calf Tenderness, Joint Swelling - Neurological Exam Neurological Exam: absent: Alert, Oriented x3 - Skin Skin Exam: Intact, Warm Assessment and Plan - Assessment and Plan (Free Text) Assessment: 82F s/p Exploratory laparotomy subtotal small bowel resection subtotal colectomy , jejunostomy Plan: - Strict I/O - Monitor vitals - Start on Bicarb drip - Monitor stoma site - restart lovenox tomorrow - medical management per Primary and ICU team - further recs per Dr. Pérez surgical attending PGY1
--- NOTE | 2018-02-25 07:59 | RAD ---
HISTORY: SOB COMPARISON: 02/24/2018 FINDINGS: LUNGS: Complete and acute opacification of the entire left joshua thorax. Air bronchograms are identified. PLEURA: No significant pleural effusion identified, no pneumothorax apparent. CARDIOVASCULAR: No radiographic findings to suggest acute or significant cardiovascular disease. OSSEOUS STRUCTURES: No significant abnormalities. VISUALIZED UPPER ABDOMEN: Normal. OTHER FINDINGS: Nasogastric tube in stable position. Endotracheal tube in the right mainstem bronchus. IMPRESSION: Complete collapse of the left lung likely due to preferential ventilation of the right lung secondary to low lying endotracheal tube the tip is in the right mainstem bronchus.
--- NOTE | 2018-02-25 08:02 | RAD ---
HISTORY: for central line COMPARISON: February 24, 2018. Time of the most recent examination: 21:52. FINDINGS: LUNGS: Atelectasis left lung. This is improved compared to the prior study. PLEURA: No significant pleural effusion identified, no pneumothorax apparent. CARDIOVASCULAR: No radiographic findings to suggest acute or significant cardiovascular disease. Venous access catheter in satisfactory position. OSSEOUS STRUCTURES: No significant abnormalities. VISUALIZED UPPER ABDOMEN: Normal. OTHER FINDINGS: Satisfactory position of endotracheal tube and nasogastric tube. IMPRESSION: No adverse findings following right IJ catheter placement.
[2018-02-25 08:27] LABS: ALB/GLOB RATIO 0.9 (1.1-1.8); ALBUMIN 2.1 g/dL (3.0-4.8); BLOOD UREA NITROGEN 45 mg/dL (7-21); GFR AFRICAN-AMERICAN 31; GFR NON-AFRICAN AMERICAN 25
[2018-02-25] MEDS ORDERED: Dextrose 50% SYRINGE Inj (50 ml) ONE ×2 (08:29→14:50)
[2018-02-25] MEDS ORDERED: Dextrose 50% SYRINGE Inj (50 ml) IVP ONE ×3 (08:30→21:04)
[2018-02-25 08:32] LABS: ALT/SGPT 4785 U/L (7-56); AST/SGOT 6863 U/L (14-36)
[2018-02-25 08:37] LABS: CALCIUM 6.7 mg/dL (8.4-10.5)
[2018-02-25] MEDS: Meropenem IV 1 gm in NS 50 ML IVPB SCH (09:14)
--- NOTE | 2018-02-25 09:58 | RAD ---
HISTORY: upright. free air COMPARISON: February 24, 2018. FINDINGS: BOWEL: Distended bowel distended colon and small bowel similar to that seen on a recent CT scan BONES: Normal. OTHER FINDINGS: Nasogastric tube in the proximal stomach. IMPRESSION: No visible free air.
[2018-02-25] MEDS ORDERED: Enoxaparin 30 mg Syringe SC SCH (10:00)
--- NOTE | 2018-02-25 10:02 | RAD ---
HISTORY: intubated COMPARISON: Multiple serial examinations preceding the most recent study: February 24, 2018. FINDINGS: LUNGS: No active pulmonary disease. Resolution of changes the left lung related to atelectasis identified on multiple prior studies PLEURA: No significant pleural effusion identified, no pneumothorax apparent. CARDIOVASCULAR: Normal. OSSEOUS STRUCTURES: No significant abnormalities. VISUALIZED UPPER ABDOMEN: Normal. OTHER FINDINGS: Stable, satisfactory position ventilatory, vascular and nasogastric apparatus. IMPRESSION: No active pulmonary disease. Completely re-expanded left lung.
--- NOTE | 2018-02-25 10:16 | PN ---
DATE: 02/25/2018 DISTANCE LEARNING PROGRAM COORDINATOR NOTE SUBJECTIVE: The patient is unresponsive on the ventilator and family is at bedside. At this time, she is on Levophed for BP stabilization. The patient is on no sedative medications at this time. Note that she is post exploratory laparotomy and status post hemicolectomy and has a jejunostomy in place at this time. The patient also is post CPR x2. PHYSICAL EXAMINATION VITAL SIGNS: Her temperature is 96.5, her pulse is 110, respirations are 16 and BP is 195/96. SKIN: Warm and dry. HEENT: Head atraumatic, normocephalic. Eyes, sluggish to reaction. Ear, nose and throat seemed to be within normal limits. NECK: Supple. No JVD. No thyroid enlargement or lymph nodes. HEART: Has regular rate and rhythm. Normal S1, S2 with tachycardic. LUNGS: Reveal good breath sounds bilaterally. ABDOMEN: Fairly soft. No bowel sounds. Jejunostomy is in place. EXTREMITIES: Reveal no edema. NEUROLOGIC: She is unresponsive at this time on the ventilator. LABORATORY DATA: As far laboratories are concerned, the patient's white count is 5.6, hemoglobin is 12, hematocrit 36.5 with platelets of 192,000. Arterial blood gas reveals a pH of 7.13, pCO2 of 22, pO2 of 287. Sodium is 146, potassium 3.5, chloride 107, CO2 of 14 with BUN of 41, creatinine of 1.1 and a glucose of 186. As far as her chest x-ray, reveals no obvious infiltrates, this is an unofficial reading. IMPRESSION: This patient has a bowel obstruction with necrotic colon, status post hemicolectomy and has postsurgical jejunostomy. The patient is in septic shock with hypotension and is status post cardiopulmonary resuscitation x2. At this time, she has respiratory failure, requiring ventilator support, FiO2 of 100%. The patient has a severe metabolic acidosis and has a past history of gastritis as well as esophagitis and diverticulitis. The patient has a history of a hiatal hernia, diabetes, dementia and hypertension. PLAN: As far as our plan, we will continue with ventilator support and we will decrease the FiO2 as tolerated. The patient will continue with Levophed for blood pressure support. We will give ampule of bicarbonate stat and start a bicarbonate drip for the metabolic acidosis. We will follow her chest x-ray and arterial blood gas closely. We will continue with meropenem as well as Protonix and Flagyl and continue with IV fluids. We will correct her laboratories as needed. We will continue to treat aggressively along with the other consultants and the primary care doctor. Yeyo Estrada MD
--- NOTE | 2018-02-25 10:18 | CP.PCM.CON ---
<Torito Shane - Last Filed: 02/25/18 09:55> History of Present Illness - History of Present Illness History of Present Illness: PGY4 Initial GI Consult Lashell Felder is a 82 F w hx of SBO , laparoscopic incarcerated umbilical hernia repair, and diverticulitis who presented with sudden abdominal pain, nausea and vomiting. Onset of pain was 1 day ago. When pt was seen and examined , she was sedated and intubated. All information obtained is from the EMR and staff. Pt was apparently found by her neighbor, locked out from her home. She seemed to be in distress and complaining of abd pain, nausea, and vomiting. Her last BM was apparently yesterday. Non bloody. Denied fever, chills, chest pain, shortness of breath, hematochezia, recent weight loss. Reports that she had colonoscopy done in the past and was normal. Initial CT of abd shows narrowing on sigmoid colon with thicken wall, dilated SB and colon. NGT is placed in ED. put out about 300cc coffee ground color gasgtric fluids. Pt's clinical presentation worsened and had emergent surgery which revealed necrotic large and small bowel. She had a subtotal colectomy and subsequent jejunostomy. She remained intubated and started on norepinephrine. PMH HTN PSH: laparoscpic hernia repair w mesh 2011 Med: Naproxen Family Hx: unknown Endo hx: unknown ROS: 12 point ROS could not be conducted Past Patient History - Infectious Disease Hx of Infectious Diseases: None - Past Social History Smoking Status: Never Smoked - CARDIAC Hx Cardiac Disorders: Yes Hx Hypertension: Yes - PULMONARY Hx Respiratory Disorders: No - NEUROLOGICAL Hx Neurological Disorder: Yes Hx Dementia: Yes - HEENT Hx HEENT Problems: No - RENAL Hx Chronic Kidney Disease: No - ENDOCRINE/METABOLIC Hx Endocrine Disorders: Yes Hx Diabetes Mellitus Type 2: Yes - HEMATOLOGICAL/ONCOLOGICAL Hx Blood Disorders: No - INTEGUMENTARY Hx Dermatological Problems: No - MUSCULOSKELETAL/RHEUMATOLOGICAL Hx Musculoskeletal Disorders: No - GASTROINTESTINAL Hx Gastrointestinal Disorders: Yes Hx Diarrhea: Yes - GENITOURINARY/GYNECOLOGICAL Hx Genitourinary Disorders: No - PSYCHIATRIC Hx Psychophysiologic Disorder: Yes Hx Anxiety: Yes Hx Substance Use: No - SURGICAL HISTORY Hx Surgeries: No - ANESTHESIA Hx Anesthesia: No Hx Anesthesia Reactions: No Hx Malignant Hyperthermia: No Meds Allergies/Adverse Reactions: Allergies Allergy/AdvReac Type Severity Reaction Status Date / Time amoxicillin [From Amoxil] Allergy RASH Verified 02/24/18 11:28 ciprofloxacin AdvReac REDNESS Verified 02/24/18 18:38 - Medications Medications: Current Medications Enoxaparin Sodium (Lovenox) 30 mg SC DAILY CLAUDINE PRN Reason: Protocol Hydromorphone HCl (Dilaudid) 0.5 mg IVP Q4H PRN PRN Reason: Pain, severe (8-10) Last Admin: 02/24/18 18:09 Dose: 0.5 mg Metronidazole (Flagyl) 500 mg in 100 mls @ 100 mls/hr IVPB Q8 CLAUDINE PRN Reason: Protocol Last Admin: 02/25/18 05:29 Dose: 100 mls/hr Pantoprazole Sodium (Protonix 40mg Ivpb) 40 mg in 100 mls @ 20 mls/hr IVPB .Q5H [facility] Last Admin: 02/25/18 09:40 Dose: 20 mls/hr Meropenem (Merrem Iv 1 Gm Premix) 50 mls @ 100 mls/hr IVPB Q12 CLAUDINE PRN Reason: Protocol Stop: 03/05/18 21:21 Last Admin: 02/25/18 09:14 Dose: 100 mls/hr NOREPINEPHRINE BIT/0.9 % NACL (Levophed 4 Mg/ 250 Ml Ns Premixed) 4 mg in 250 mls @ 15 mls/hr IV .[id number] PRN; Protocol; 4 MCG/MIN PRN Reason: TITRATE PER MD ORDER Last Admin: 02/25/18 06:49 Dose: 9.01 mcg/min, 33.788 mls/hr Sodium Bicarbonate 75 meq/ (Sodium Chloride) 1,075 mls @ 100 mls/hr IV .[id number] [facility] Last Admin: 02/25/18 08:48 Dose: 100 mls/hr Dextrose (Dextrose 10% In Water) 500 mls @ 30 mls/hr IV .[id number] [facility] Last Admin: 02/25/18 09:02 Dose: 30 mls/hr Ondansetron HCl (Zofran Inj) 4 mg IVP Q4 PRN PRN Reason: Nausea/Vomiting Physical Exam - Constitutional Appears: No Acute Distress - Head Exam Head Exam: ATRAUMATIC, NORMOCEPHALIC - Eye Exam Eye Exam: Normal appearance - ENT Exam ENT Exam: Mucous Membranes Moist, Normal Exam - Neck Exam Neck exam: Positive for: Normal Inspection - Respiratory Exam Respiratory Exam: Clear to Auscultation Bilateral. absent: Rales, Rhonchi, Wheezes, Respiratory Distress - Cardiovascular Exam Cardiovascular Exam: REGULAR RHYTHM, +S1, +S2 - GI/Abdominal Exam Additional comments: jejunostomy intact w/ brown stool in bag, ostomy pink - Extremities Exam Extremities exam: Negative for: joint swelling, pedal edema - Neurological Exam Additional comments: sedated - Psychiatric Exam Additional comments: could not be asssess - Skin Skin Exam: Dry, Intact, Normal Color, Warm Results - Vital Signs Recent Vital Signs: Last Vital Signs Temp 96.5 F L 02/25/18 06:47 Pulse 110 H 02/25/18 06:30 Resp 16 02/25/18 06:30 BP 195/96 H 02/25/18 06:07 Pulse Ox 98 02/25/18 06:30 - Labs Result Diagrams: 02/25/18 07:00 02/25/18 08:00 Labs: Laboratory Results - last 24 hr 02/24/18 02/24/18 02/24/18 16:20 19:10 19:27 WBC 6.2 D RBC 5.08 Hgb 15.9 Hct 46.7 MCV 91.9 MCH 31.3 MCHC 34.0 RDW 14.7 H Plt Count 255 MPV 11.3 H Gran % 72.1 H Lymph % (Auto) 19.9 L Dolores % (Auto) 7.8 H Eos % (Auto) 0.0 L Baso % (Auto) 0.2 Gran # 4.45 Lymph # (Auto) 1.2 Dolores # (Auto) 0.5 Eos # (Auto) 0.0 Baso # (Auto) 0.01 pCO2 25 L pO2 57 H 80.0 HCO3 12.9 L ABG pH 7.32 L ABG Total CO2 13.7 L ABG O2 Saturation 94.8 L ABG O2 Content 18.9 ABG Base Excess -11.3 L ABG Hemoglobin 14.5 ABG Carboxyhemoglobin 0.6 POC ABG HHb (Measured) 5.1 H ABG Methemoglobin 1.8 ABG O2 Capacity 19.9 ABG Potassium VBG pH 7.19 L* VBG pCO2 36.0 L VBG HCO3 13.8 L VBG Total CO2 14.9 L VBG O2 Sat (Calc) 87.7 H VBG Base Excess -13.5 L VBG Potassium 3.8 Hgb O2 Saturation 92.5 L Sodium 139.0 Chloride 103.0 Glucose 249 H Lactate 9.6 H* FiO2 21.0 36.0 Potassium Carbon Dioxide Anion Gap BUN Creatinine Est GFR ( Amer) Est GFR (Non-Af Amer) POC Glucose (mg/dL) Random Glucose Lactic Acid Calcium Total Bilirubin AST ALT Alkaline Phosphatase Total Protein Albumin Globulin Albumin/Globulin Ratio Arterial Blood Potassium Venous Blood Potassium 3.8 Blood Type Antibody Screen Crossmatch BBK History Checked 02/24/18 02/24/18 02/24/18 19:27 19:27 19:43 WBC RBC Hgb Hct MCV MCH MCHC RDW Plt Count MPV Gran % Lymph % (Auto) Dolores % (Auto) Eos % (Auto) Baso % (Auto) Gran # Lymph # (Auto) Dolores # (Auto) Eos # (Auto) Baso # (Auto) pCO2 pO2 HCO3 ABG pH ABG Total CO2 ABG O2 Saturation ABG O2 Content ABG Base Excess ABG Hemoglobin ABG Carboxyhemoglobin POC ABG HHb (Measured) ABG Methemoglobin ABG O2 Capacity ABG Potassium VBG pH VBG pCO2 VBG HCO3 VBG Total CO2 VBG O2 Sat (Calc) VBG Base Excess VBG Potassium Hgb O2 Saturation Sodium 146 Chloride 107 Glucose Lactate FiO2 Potassium 3.5 L Carbon Dioxide 14 L Anion Gap 28 H BUN 41 H Creatinine 1.1 Est GFR ( Amer) 58 Est GFR (Non-Af Amer) 48 POC Glucose (mg/dL) 158 H Random Glucose 186 H Lactic Acid 9.1 H* Calcium 9.7 Total Bilirubin 0.8 AST 54 H ALT 37 Alkaline Phosphatase 88 Total Protein 7.2 Albumin 3.8 Globulin 3.4 Albumin/Globulin Ratio 1.1 Arterial Blood Potassium Venous Blood Potassium Blood Type Antibody Screen Crossmatch BBK History Checked 02/24/18 02/24/18 02/25/18 21:45 23:10 07:00 WBC 5.6 RBC 3.91 Hgb 12.0 D Hct 36.5 MCV 93.4 MCH 30.7 MCHC 32.9 RDW 15.3 H Plt Count 192 MPV 11.4 H Gran % 79.1 H Lymph % (Auto) 15.3 L Dolores % (Auto) 5.2 Eos % (Auto) 0.0 L Baso % (Auto) 0.4 Gran # 4.39 Lymph # (Auto) 0.9 L Dolores # (Auto) 0.3 Eos # (Auto) 0.0 Baso # (Auto) 0.02 pCO2 pO2 HCO3 ABG pH ABG Total CO2 ABG O2 Saturation ABG O2 Content ABG Base Excess ABG Hemoglobin ABG Carboxyhemoglobin POC ABG HHb (Measured) ABG Methemoglobin ABG O2 Capacity ABG Potassium VBG pH VBG pCO2 VBG HCO3 VBG Total CO2 VBG O2 Sat (Calc) VBG Base Excess VBG Potassium Hgb O2 Saturation Sodium Chloride Glucose Lactate FiO2 Potassium Carbon Dioxide Anion Gap BUN Creatinine Est GFR ( Amer) Est GFR (Non-Af Amer) POC Glucose (mg/dL) 125 H Random Glucose Lactic Acid Calcium Total Bilirubin AST ALT Alkaline Phosphatase Total Protein Albumin Globulin Albumin/Globulin Ratio Arterial Blood Potassium Venous Blood Potassium Blood Type A POSITIVE Antibody Screen Negative Crossmatch See Detail BBK History Checked Patient has bt 02/25/18 02/25/18 02/25/18 07:20 08:00 08:27 WBC RBC Hgb Hct MCV MCH MCHC RDW Plt Count MPV Gran % Lymph % (Auto) Dolores % (Auto) Eos % (Auto) Baso % (Auto) Gran # Lymph # (Auto) Dolores # (Auto) Eos # (Auto) Baso # (Auto) pCO2 22 L pO2 287.0 H HCO3 7.3 L* ABG pH 7.13 L* ABG Total CO2 8.0 L ABG O2 Saturation 97.9 ABG O2 Content ABG Base Excess -20.1 L ABG Hemoglobin ABG Carboxyhemoglobin POC ABG HHb (Measured) ABG Methemoglobin ABG O2 Capacity ABG Potassium 3.8 VBG pH VBG pCO2 VBG HCO3 VBG Total CO2 VBG O2 Sat (Calc) VBG Base Excess VBG Potassium Hgb O2 Saturation Sodium 148.0 144 Chloride 120.0 H 113 H Glucose 20 L* D Lactate 9.4 H* FiO2 100.0 Potassium 5.5 H Carbon Dioxide 11 L Anion Gap 25 H BUN 45 H Creatinine 1.9 H Est GFR ( Amer) 31 Est GFR (Non-Af Amer) 25 POC Glucose (mg/dL) < 20 L* Random Glucose < 20 L* D Lactic Acid Calcium 6.7 L* Total Bilirubin 1.2 AST 6863 H ALT 4785 H Alkaline Phosphatase 85 Total Protein 4.5 L Albumin 2.1 L Globulin 2.4 Albumin/Globulin Ratio 0.9 L Arterial Blood Potassium 3.8 Venous Blood Potassium Blood Type Antibody Screen Crossmatch BBK History Checked 02/25/18 08:56 WBC RBC Hgb Hct MCV MCH MCHC RDW Plt Count MPV Gran % Lymph % (Auto) Dolores % (Auto) Eos % (Auto) Baso % (Auto) Gran # Lymph # (Auto) Dolores # (Auto) Eos # (Auto) Baso # (Auto) pCO2 pO2 HCO3 ABG pH ABG Total CO2 ABG O2 Saturation ABG O2 Content ABG Base Excess ABG Hemoglobin ABG Carboxyhemoglobin POC ABG HHb (Measured) ABG Methemoglobin ABG O2 Capacity ABG Potassium VBG pH VBG pCO2 VBG HCO3 VBG Total CO2 VBG O2 Sat (Calc) VBG Base Excess VBG Potassium Hgb O2 Saturation Sodium Chloride Glucose Lactate FiO2 Potassium Carbon Dioxide Anion Gap BUN Creatinine Est GFR ( Amer) Est GFR (Non-Af Amer) POC Glucose (mg/dL) 135 H Random Glucose Lactic Acid Calcium Total Bilirubin AST ALT Alkaline Phosphatase Total Protein Albumin Globulin Albumin/Globulin Ratio Arterial Blood Potassium Venous Blood Potassium Blood Type Antibody Screen Crossmatch BBK History Checked Assessment & Plan - Assessment and Plan (Free Text) Assessment: Lashell Felder is a 82F w/ hx of diverticulitis, umbilical hernia s/p repair who presents to ER w/ abd pain, nausea and vomiting. S/p subtotal colon resection and ileal resection w/ jejunostomy Sigmoid colon obstruction Bowel Necrosis s/p subtotal colon resection w/ Jejunostomy Sepsis Plan: -no plan for acute GI intervention -continue antibiotics -transfuse to keep hgb >8 -maintain PPI drip -post op surgical management -grave prognosis -rest of care as per critical care team D/W Dr. Osman <Jonathon Osman - Last Filed: 02/25/18 16:16> Meds - Medications Medications: Current Medications Enoxaparin Sodium (Lovenox) 30 mg SC DAILY CLAUDINE PRN Reason: Protocol Hydromorphone HCl (Dilaudid) 0.5 mg IVP Q4H PRN PRN Reason: Pain, severe (8-10) Last Admin: 02/24/18 18:09 Dose: 0.5 mg Metronidazole (Flagyl) 500 mg in 100 mls @ 100 mls/hr IVPB Q8 CLAUDINE PRN Reason: Protocol Last Admin: 02/25/18 13:46 Dose: 100 mls/hr Pantoprazole Sodium (Protonix 40mg Ivpb) 40 mg in 100 mls @ 20 mls/hr IVPB .Q5H [facility] Last Admin: 02/25/18 15:13 Dose: 20 mls/hr Meropenem (Merrem Iv 1 Gm Premix) 50 mls @ 100 mls/hr IVPB Q12 CLAUDINE PRN Reason: Protocol Stop: 03/05/18 21:21 Last Admin: 02/25/18 09:14 Dose: 100 mls/hr NOREPINEPHRINE BIT/0.9 % NACL (Levophed 4 Mg/ 250 Ml Ns Premixed) 4 mg in 250 mls @ 15 mls/hr IV .[id number] PRN; Protocol; 4 MCG/MIN PRN Reason: TITRATE PER MD ORDER Last Admin: 02/25/18 11:56 Dose: 13.86 mcg/min, 52 mls/hr Sodium Bicarbonate 75 meq/ (Sodium Chloride) 1,075 mls @ 100 mls/hr IV .[id number] [facility] Last Admin: 02/25/18 08:48 Dose: 100 mls/hr Dextrose (Dextrose 10% In Water) 500 mls @ 30 mls/hr IV .[id number] [facility] Last Admin: 02/25/18 09:02 Dose: 30 mls/hr Ondansetron HCl (Zofran Inj) 4 mg IVP Q4 PRN PRN Reason: Nausea/Vomiting Results - Vital Signs Recent Vital Signs: Last Vital Signs Temp 97.9 F 02/25/18 12:30 Pulse 112 H 02/25/18 12:30 Resp 16 02/25/18 07:31 BP 91/78 L 02/25/18 12:28 Pulse Ox 100 02/25/18 12:30 - Labs Result Diagrams: 02/25/18 07:00 02/25/18 08:00 Labs: Laboratory Results - last 24 hr 02/24/18 02/24/18 02/24/18 16:20 19:10 19:27 WBC 6.2 D RBC 5.08 Hgb 15.9 Hct 46.7 MCV 91.9 MCH 31.3 MCHC 34.0 RDW 14.7 H Plt Count 255 MPV 11.3 H Gran % 72.1 H Lymph % (Auto) 19.9 L Dolores % (Auto) 7.8 H Eos % (Auto) 0.0 L Baso % (Auto) 0.2 Gran # 4.45 Lymph # (Auto) 1.2 Dolores # (Auto) 0.5 Eos # (Auto) 0.0 Baso # (Auto) 0.01 PT INR APTT pCO2 25 L pO2 57 H 80.0 HCO3 12.9 L ABG pH 7.32 L ABG Total CO2 13.7 L ABG O2 Saturation 94.8 L ABG O2 Content 18.9 ABG Base Excess -11.3 L ABG Hemoglobin 14.5 ABG Carboxyhemoglobin 0.6 POC ABG HHb (Measured) 5.1 H ABG Methemoglobin 1.8 ABG O2 Capacity 19.9 ABG Potassium VBG pH 7.19 L* VBG pCO2 36.0 L VBG HCO3 13.8 L VBG Total CO2 14.9 L VBG O2 Sat (Calc) 87.7 H VBG Base Excess -13.5 L VBG Potassium 3.8 Hgb O2 Saturation 92.5 L Sodium 139.0 Chloride 103.0 Glucose 249 H Lactate 9.6 H* FiO2 21.0 36.0 Potassium Carbon Dioxide Anion Gap BUN Creatinine Est GFR ( Amer) Est GFR (Non-Af Amer) POC Glucose (mg/dL) Random Glucose Lactic Acid Calcium Total Bilirubin AST ALT Alkaline Phosphatase Total Protein Albumin Globulin Albumin/Globulin Ratio Arterial Blood Potassium Venous Blood Potassium 3.8 Blood Type Antibody Screen Crossmatch BBK History Checked 02/24/18 02/24/18 02/24/18 19:27 19:27 19:43 WBC RBC Hgb Hct MCV MCH MCHC RDW Plt Count MPV Gran % Lymph % (Auto) Dolores % (Auto) Eos % (Auto) Baso % (Auto) Gran # Lymph # (Auto) Dolores # (Auto) Eos # (Auto) Baso # (Auto) PT INR APTT pCO2 pO2 HCO3 ABG pH ABG Total CO2 ABG O2 Saturation ABG O2 Content ABG Base Excess ABG Hemoglobin ABG Carboxyhemoglobin POC ABG HHb (Measured) ABG Methemoglobin ABG O2 Capacity ABG Potassium VBG pH VBG pCO2 VBG HCO3 VBG Total CO2 VBG O2 Sat (Calc) VBG Base Excess VBG Potassium Hgb O2 Saturation Sodium 146 Chloride 107 Glucose Lactate FiO2 Potassium 3.5 L Carbon Dioxide 14 L Anion Gap 28 H BUN 41 H Creatinine 1.1 Est GFR ( Amer) 58 Est GFR (Non-Af Amer) 48 POC Glucose (mg/dL) 158 H Random Glucose 186 H Lactic Acid 9.1 H* Calcium 9.7 Total Bilirubin 0.8 AST 54 H ALT 37 Alkaline Phosphatase 88 Total Protein 7.2 Albumin 3.8 Globulin 3.4 Albumin/Globulin Ratio 1.1 Arterial Blood Potassium Venous Blood Potassium Blood Type Antibody Screen Crossmatch BBK History Checked 02/24/18 02/24/18 02/25/18 21:45 23:10 07:00 WBC 5.6 RBC 3.91 Hgb 12.0 D Hct 36.5 MCV 93.4 MCH 30.7 MCHC 32.9 RDW 15.3 H Plt Count 192 MPV 11.4 H Gran % 79.1 H Lymph % (Auto) 15.3 L Dolores % (Auto) 5.2 Eos % (Auto) 0.0 L Baso % (Auto) 0.4 Gran # 4.39 Lymph # (Auto) 0.9 L Dolores # (Auto) 0.3 Eos # (Auto) 0.0 Baso # (Auto) 0.02 PT INR APTT pCO2 pO2 HCO3 ABG pH ABG Total CO2 ABG O2 Saturation ABG O2 Content ABG Base Excess ABG Hemoglobin ABG Carboxyhemoglobin POC ABG HHb (Measured) ABG Methemoglobin ABG O2 Capacity ABG Potassium VBG pH VBG pCO2 VBG HCO3 VBG Total CO2 VBG O2 Sat (Calc) VBG Base Excess VBG Potassium Hgb O2 Saturation Sodium Chloride Glucose Lactate FiO2 Potassium Carbon Dioxide Anion Gap BUN Creatinine Est GFR ( Amer) Est GFR (Non-Af Amer) POC Glucose (mg/dL) 125 H Random Glucose Lactic Acid Calcium Total Bilirubin AST ALT Alkaline Phosphatase Total Protein Albumin Globulin Albumin/Globulin Ratio Arterial Blood Potassium Venous Blood Potassium Blood Type A POSITIVE Antibody Screen Negative Crossmatch See Detail BBK History Checked Patient has bt 02/25/18 02/25/18 02/25/18 07:20 08:00 08:27 WBC RBC Hgb Hct MCV MCH MCHC RDW Plt Count MPV Gran % Lymph % (Auto) Dolores % (Auto) Eos % (Auto) Baso % (Auto) Gran # Lymph # (Auto) Dolores # (Auto) Eos # (Auto) Baso # (Auto) PT INR APTT pCO2 22 L pO2 287.0 H HCO3 7.3 L* ABG pH 7.13 L* ABG Total CO2 8.0 L ABG O2 Saturation 97.9 ABG O2 Content ABG Base Excess -20.1 L ABG Hemoglobin ABG Carboxyhemoglobin POC ABG HHb (Measured) ABG Methemoglobin ABG O2 Capacity ABG Potassium 3.8 VBG pH VBG pCO2 VBG HCO3 VBG Total CO2 VBG O2 Sat (Calc) VBG Base Excess VBG Potassium Hgb O2 Saturation Sodium 148.0 144 Chloride 120.0 H 113 H Glucose 20 L* D Lactate 9.4 H* FiO2 100.0 Potassium 5.5 H Carbon Dioxide 11 L Anion Gap 25 H BUN 45 H Creatinine 1.9 H Est GFR ( Amer) 31 Est GFR (Non-Af Amer) 25 POC Glucose (mg/dL) < 20 L* Random Glucose < 20 L* D Lactic Acid Calcium 6.7 L* Total Bilirubin 1.2 AST 6863 H ALT 4785 H Alkaline Phosphatase 85 Total Protein 4.5 L Albumin 2.1 L Globulin 2.4 Albumin/Globulin Ratio 0.9 L Arterial Blood Potassium 3.8 Venous Blood Potassium Blood Type Antibody Screen Crossmatch BBK History Checked 02/25/18 02/25/18 02/25/18 08:56 11:59 12:00 WBC RBC Hgb Hct MCV MCH MCHC RDW Plt Count MPV Gran % Lymph % (Auto) Dolores % (Auto) Eos % (Auto) Baso % (Auto) Gran # Lymph # (Auto) Dolores # (Auto) Eos # (Auto) Baso # (Auto) PT 28.1 H INR 2.40 H APTT 30.7 pCO2 pO2 HCO3 ABG pH ABG Total CO2 ABG O2 Saturation ABG O2 Content ABG Base Excess ABG Hemoglobin ABG Carboxyhemoglobin POC ABG HHb (Measured) ABG Methemoglobin ABG O2 Capacity ABG Potassium VBG pH VBG pCO2 VBG HCO3 VBG Total CO2 VBG O2 Sat (Calc) VBG Base Excess VBG Potassium Hgb O2 Saturation Sodium Chloride Glucose Lactate FiO2 Potassium Carbon Dioxide Anion Gap BUN Creatinine Est GFR ( Amer) Est GFR (Non-Af Amer) POC Glucose (mg/dL) 135 H 79 Random Glucose Lactic Acid Calcium Total Bilirubin AST ALT Alkaline Phosphatase Total Protein Albumin Globulin Albumin/Globulin Ratio Arterial Blood Potassium Venous Blood Potassium Blood Type Antibody Screen Crossmatch BBK History Checked 02/25/18 02/25/18 12:00 14:48 WBC RBC Hgb Hct MCV MCH MCHC RDW Plt Count MPV Gran % Lymph % (Auto) Dolores % (Auto) Eos % (Auto) Baso % (Auto) Gran # Lymph # (Auto) Dolores # (Auto) Eos # (Auto) Baso # (Auto) PT INR APTT pCO2 pO2 61 H HCO3 ABG pH ABG Total CO2 ABG O2 Saturation ABG O2 Content ABG Base Excess ABG Hemoglobin ABG Carboxyhemoglobin POC ABG HHb (Measured) ABG Methemoglobin ABG O2 Capacity ABG Potassium VBG pH 7.04 L* VBG pCO2 33.0 L VBG HCO3 8.9 L VBG Total CO2 9.9 L VBG O2 Sat (Calc) 82.9 H VBG Base Excess -20.8 L VBG Potassium 5.7 H Hgb O2 Saturation Sodium 142.0 Chloride 108.0 H Glucose 99 Lactate 15.6 H* FiO2 21.0 Potassium Carbon Dioxide Anion Gap BUN Creatinine Est GFR ( Amer) Est GFR (Non-Af Amer) POC Glucose (mg/dL) 42 L Random Glucose Lactic Acid Calcium Total Bilirubin AST ALT Alkaline Phosphatase Total Protein Albumin Globulin Albumin/Globulin Ratio Arterial Blood Potassium Venous Blood Potassium 5.7 H Blood Type Antibody Screen Crossmatch BBK History Checked Attending/Attestation - Attestation I have personally seen and examined this patient.: Yes I have fully participated in the care of the patient.: Yes I have reviewed all pertinent clinical information: Yes Notes (Text): 02/25/18 16:14 82 year old female with h/o SBO who presents with obstructed sigmoid colon, septic shock, now s/p ex lap with subtotal colectomy and small bowel resection of necrotic bowel with creation of end ileostomy. She remains critically ill, hypotensive on pressors, with severe metabolic acidosis. She is being started on a bicarb drip. Consider nephrology eval for severe acidosis. On broad spectrum antibiotics and ventilator support. Overall prognosis poor.
[2018-02-25] MEDS ORDERED: Vancomycin 1gm in NS 250ml 1 GM/250 ML BAG IVPB STA (11:23)
[2018-02-25 12:13] LABS: VENOUS BLOOD GAS BASE EXCESS -20.8 mmol/L (0.0-2.0); VENOUS BLOOD GAS PO2 61 mm/Hg (30-55); VENOUS BLOOD PH 7.04 (7.32-7.43)
[2018-02-25 12:53] LABS: PROTHROMBIN TIME 28.1 SECONDS (9.4-12.5)
[2018-02-25 12:54] LABS: INR 2.4 (0.93-1.08); PARTIAL THROMBOPLASTIN TIME 30.7 Seconds (25.1-36.5)
--- NOTE | 2018-02-25 14:57 | CARD ---
APPROVED REPORT EKG Measurement Heart [id number] <Conclusion> Sinus tachycardia ST & T wave abnormality, consider inferior ischemia Abnormal ECG
[2018-02-25 18:02] LABS: VENOUS BLOOD GAS BASE EXCESS -20.9 mmol/L (0.0-2.0); VENOUS BLOOD GAS PO2 52 mm/Hg (30-55)
[2018-02-25 18:07] LABS: VENOUS BLOOD PH 7.03 (7.32-7.43)
[2018-02-25 22:04] LABS: VENOUS BLOOD GAS BASE EXCESS -21.1 mmol/L (0.0-2.0); VENOUS BLOOD GAS PO2 69 mm/Hg (30-55)
[2018-02-25 22:06] LABS: VENOUS BLOOD FIO2 100 %
[2018-02-25 22:09] LABS: VENOUS BLOOD PH 7.05 (7.32-7.43)
--- NOTE | 2018-02-25 22:39 | CON ---
DATE: Patient is seen in the ICU. CHIEF COMPLAINT: Respiratory failure, intubated on a ventilator x1 day. HISTORY OF PRESENT ILLNESS: This is an 82-year-old female with past medical history significant for hypertension, coronary artery disease, anxiety, diabetes mellitus, dementia, who is admitted with abdominal pain and was taken to the OR, found to have bowel necrosis and obstruction and subtotal colectomy and creation of a jejunostomy, exploratory laparotomy. Patient is unable to give any history this morning. REVIEW OF SYSTEM: Reveals the patient had low-grade fevers, abdominal pain, nausea, vomiting, presentation with acute onset. Patient was seen in the emergency room, seen by a surgical team, was taken to the OR. PAST MEDICAL HISTORY: Significant for hypertension, coronary artery disease, anxiety, diabetes mellitus, dementia, hyperlipidemia. Past medical history is also significant for diverticulitis according to the surgical consultation. PAST SURGICAL HISTORY: Significant for abdominal surgery with mesh placement for incarcerated umbilical hernia, repair of mesh. ALLERGIES: PATIENT IS ALLERGIC TO AMOXICILLIN AND CIPROFLOXACIN. MEDICATIONS AT HOME: Included Ambien, Pravachol, lisinopril, Aricept, calcium. PHYSICAL EXAMINATION: GENERAL: She is in bed, intubated on a ventilator. VITAL SIGNS: Temperature is 96, T-max was 100.2. She did have a temperature of 94 earlier today, was low as 93.9, hypothermic, with a heart rate of 115, blood pressure is 190/90, it was as low as 74/47 with respiratory rate is on a vent. It was as high as 34, saturation at 82%. LABORATORY EXAMINATION: Reveals a white count of 14,500, hemoglobin of 15, platelets of 333 with 89% granulocytosis. Blood gases are noted and patient has a BUN of 45, creatinine 1.9. It was at 1.1. Calcium of 6.7. AST of , alk phos is 85. Urinalysis is noted. 0 to 2 wbc's, small bacteria. Cultures are all pending. ASSESSMENT AND PLAN: An 82-year-old female with hypertension, coronary artery disease, anxiety, diabetes, dementia, diverticulitis, hyperlipidemia with history of abdominal surgery in the past, admitted with abdominal pain, was taken to the OR, had a laparoscopic subtotal colectomy and subtotal jejunostomy earlier this morning, was started on norepinephrine initially with now septic shock with gastrointestinal source and mesenteric ischemia and adhesions and obstruction with acute kidney injury. We will give one dose of vancomycin. Treat the patient with meropenem. Pending panculture results. Overall prognosis is quite poor for this patient who is presenting with septic shock gastrointestinal source status post surgery. We will follow closely with you. Case discussed with nursing staff and family members. Pineda Baird MD
[2018-02-26] MEDS ORDERED: Sodium Chloride 0.9% 1,000 ML IV STA ×2 (00:15→02:46)
[2018-02-26] MEDS: Pantoprazole 40mg/100mL NS 40 MG/100 ML BAG IVPB SCH (01:00)
[2018-02-26] MEDS: Meropenem IV 1 gm in NS 50 ML IVPB SCH (01:05)
[2018-02-26 02:29] LABS: BASO # 0.02 K/mm3 (0.0-2.0); BASO % 0.2 % (0.0-3.0); EOS % 0.1 % (1.5-5.0); GRAN # 7.79 (1.4-6.5); GRAN % 78.5 % (50.0-68.0); LYMPH # 1.9 (1.2-3.4); LYMPH % 18.7 % (22.0-35.0); MEAN CORPUSCULAR HEMOGLOBIN 30.9 pg (25.0-35.0); MEAN CORPUSCULAR HGB CONC 30.9 g/dl (31.0-37.0); MEAN PLATELET VOLUME 11.7 fl (7.0-11.0); MONO # 0.3 (0.1-0.6); MONO % 2.5 % (1.0-6.0); RBC 2.85 10^6/uL (3.5-6.1); RED CELL DISTRIBUTION WIDTH 16.9 % (11.5-14.5); WHITE BLOOD COUNT 9.9 10^3/ul (4.5-11.0)
[2018-02-26 02:39] LABS: HEMOGLOBIN 8.8 g/dL (12.0-16.0)
[2018-02-26] MEDS ORDERED: Vasopressin 20 UNITS in Dextrose 5% In Water 100 ML IV SCH (02:45)
--- NOTE | 2018-02-26 05:05 | CP.PCM.PRO ---
<Balbir Adkins - Last Filed: 02/26/18 05:12> Pronouncement of Note - Clinical Findings Physical Exam: No Response Verbal/Painful Stimuli, Absent Peripheral Pulses{ Carotid & Femoral}, Absent Heart & Breath Sounds, No Pupillary Light Reflex, No Corneal Reflex, Pupils Fixed & Dilated, Absence of Vital Signs - Pronouncement Time Time of Pronouncement of : 04:32 - Notifications Pronouncement Notifications: Family Notified (at bedside), Atending Notified ( at bedside) Process Worker Notified: No - Autopsy Autopsy Requested: No - [place] [id number] <Patrice Houston MD - Last Filed: 02/26/18 13:13> Attending/Attestation - Attestation I have personally seen and examined this patient.: Yes I have fully participated in the care of the patient.: Yes I have reviewed all pertinent clinical information: Yes
[2018-02-26 05:31] VITALS: BP 103/66; PULSE 20; TEMP 91.6; O2SAT 73
--- NOTE | 2018-02-26 10:00 | HP ---
DATE OF EXAM: 02/24/2018 CHIEF COMPLAINT: Anxiety, abdominal pain. HISTORY OF PRESENT ILLNESS: The patient is an 82-year-old female with past medical history of altered mental status, hypertension, came to the emergency department via EMS. the patient was found , out of her house. The patient states she wanted to go visit her who lives in long term, and when she returned home, she was sitting out. She noticed that last night she was anxious and was unable to sleep. She attempted to drink water, but she was unable to keep it down. The patient is currently complaining of diffuse abdominal pain, tenderness, nausea, but no chills. PAST MEDICAL HISTORY: As above, hypertension, dementia, diabetics mellitus, diarrhea, anxiety. FAMILY HISTORY: Father and mother noncontributory. HABITS: Never smoked. No drugs, no ethnol HOME MEDICATIONS: Calcium, Aricept, Zestril, Pravachol, Zolpidem. REVIEW OF SYSTEMS: Patient seen and examined in the emergency room, complaining about abdominal pain. No fever. No chest pain. No anxiety. No hematuria. No hematochezia. No swelling of the legs. PHYSICAL EXAMINATION VITAL SIGNS: Temperature 97.8, pulse 125, respiratory rate 24, blood pressure 144/80, pulse oximetry 95. HEENT: Head normocephalic, atraumatic. Eyes, PERRLA. Extraocular movements are intact. Conjunctivae clear. Nose patent. Mucous membranes are moist. NECK: Supple. No carotid bruits. No JVD or thyromegaly. CHEST: Bilaterally symmetrical. HEART: S1 and S2 positive. LUNGS: Clear to auscultation. ABDOMEN: Soft. Bowel sounds positive. Tender in all 4 quadrants, diffuse bowel sounds. No peritoneal signs. EXTREMITIES: No edema. No cyanosis. NEUROLOGIC: The patient is awake and alert. Moving all four extremities. No focal deficits. LABORATORY DATA: White blood cells 14.5, hemoglobin 15.5, platelets 332. Sodium 141, potassium 3.6, BUN 31, creatinine 1.1, glucose 286. ASSESSMENT AND PLAN: The patient is a 82-year-old lady with leukocytosis, hyperglycemia, has a small bowel obstruction, rule out sepsis, history of altered mental status in the past, dementia, diabetes mellitus, history of anxiety. We admitted the patient. Consult called with surgeon on-call. Chest x-ray done. CAT scan of abdomen and pelvis done. History of laparoscopic hernia repair with mesh in 2011. Now patient has bowel obstruction with circumferential sigmoid narrowing and history of abdominal surgery, cannot rule out near obstruction or chronic mass; tachycardia, strict intake and output measurements and p.o. IV fluid. Infectious Disease consult for circumferential sigmoid wall thickness , abdominal exam as per Dr. Pérez. Rule out sepsis. Discussion done with vice president of engineering. Waiting for surgeon input. Dr. Baird is on the case also. We will follow. Michelle Naranjo MD MTDD
--- NOTE | 2018-02-26 12:59 | CP.PCM.PN ---
Subjective - Date & Time of Evaluation Date of Evaluation: 02/26/18 Time of Evaluation: 05:00 - Subjective Subjective: Overnight Events (including CODE BLUE): -Pts family requested to change resuscitation status to a modified DNR (no chest compressions but all medications and pressors during ACLS ok). -Early AM, pt became hypotensive despite IVF bolus and max Levophed -Stat CBC drawn which showed 3.5 unit drop in Hbg within past 1 day -As a result, Vassopressin drip, another Normal Saline IVF bolus and 2u PRBCs all ordered -Also, stat CT-AP ordered to evaluate for acute intra-abdominal bleeding (given drop in Hgb and hypotension) -Patient taken down for stat CT-AP after receiving IVF bolus and start of first PRBC transfusion -Upon arrival from CT-AP, patient went into asystole -ACLS protocol initiated (without chest compressions, as requested by family)( Of note, just prior to and during CODE BLUE, family's wishes not to do chest compressions were again confirmed) -CODE BLUE lasted longer than 12 minutes and included multiple doses of Epinephrine, wide open IV fluids, 2AMPs IV Bicarb and fingerstick check (174). -Her rhythm was also checked on 2 different monitors which both showed persistent asystole, despite all medical treatments given during the code -Patient pronounced at 04:32AM this morning (pupils fixed and non-reactive, absent breath and heart sounds, absent gag and corneal reflexes and no response to chest thrust). -Patients family who were just outside the room were all notified -RN plans to notify primary MD this morning -Cause of : cardiopulmonary failure likely due to septic shock (due to gangrenous/infected bowel) Objective - Vital Signs/Intake and Output Vital Signs (last 24 hours): Temp Pulse Resp BP Pulse Ox 91.6 F L 20 L 16 103/66 73 L 02/26/18 04:37 02/26/18 04:37 02/25/18 07:31 02/26/18 04:14 02/26/18 04:04 Intake and Output: 02/26/18 02/26/18 06:59 18:59 Intake Total 3154 Output Total 540 Balance 2614 - Labs Labs: 02/26/18 01:50 02/25/18 08:00 PT 28.1 SECONDS (9.4-12.5) H 02/25/18 12:00 INR 2.40 (0.93-1.08) H 02/25/18 12:00 APTT 30.7 Seconds (25.1-36.5) 02/25/18 12:00
--- NOTE | 2018-02-26 13:40 | CT ---
PROCEDURE: CT HEAD WITHOUT CONTRAST. HISTORY: rule out bleed COMPARISON: 01/19/2015. TECHNIQUE: Axial computed tomography images were obtained through the head/brain without intravenous contrast. Radiation dose: Total exam DLP = 973.01 mGy-cm. This CT exam was performed using one or more of the following dose reduction techniques: Automated exposure control, adjustment of the mA and/or kV according to patient size, and/or use of iterative reconstruction technique. FINDINGS: HEMORRHAGE: No intracranial hemorrhage. BRAIN: There is diffuse low-attenuation in the peripheral frontal, parietal, temporal and occipital cortices, in the border zone territory and bilateral thalami as well as posterior limbs of the internal capsule. There is no extra-axial fluid collection. VENTRICLES: There is mild age-related global parenchymal volume loss and proportionate enlargement of the ventricles and cortical sulci. CALVARIUM: The skull base and calvarium are normal. PARANASAL SINUSES: There is fluid in the right maxillary sinus and scattered mucosal thickening in the ethmoid air cells the MASTOID AIR CELLS: Predominantly clear. OTHER FINDINGS: None. IMPRESSION: Findings are most compatible with diffuse hypoxic ischemic insult. There is a discrepancy with the [facility] prelim report. Critical findings were discussed with resident Dr Johnny Meng on 02/26/2018 at 1:35 p.m.
--- NOTE | 2018-02-26 14:48 | PN ---
DATE: SUBJECTIVE: The patient was seen in ICU on 02/25/2018. The patient was intubated on ventilator. The patient is on Levophed for blood pressure stabilization. The patient is on no sedative medications at this time. She is post exploratory laparotomy, is not able to give review of systems. Has status post hemicolectomy and has a jejunostomy in place at this time, status post CPR x2. No nausea or vomiting. PHYSICAL EXAMINATION VITAL SIGNS: Her temperature 96.5, her pulse 100, respiratory rate 18, blood pressure 195/96. HEENT: Head normocephalic, atraumatic. Eyes, PERRLA. Nose patent. Mucous membranes moist. NECK: Supple. No JVD. No thyromegaly or lymph node enlargement. HEART: Has regular rate and rhythm. S1 and S2 positive with tachycardia. LUNGS: Revealed good breath sounds bilaterally. ABDOMEN: Fairly soft. No bowel sounds. Jejunostomy is in place. EXTREMITIES: No edema. NEUROLOGIC: The patient is unresponsive, on ventilator. LABORATORY DATA: White blood cells 5.6, hemoglobin 12, hematocrit 36.5, platelets 192,000. Sodium 146, potassium 3.5, BUN 41, creatinine 1.1, glucose 186. MEDICATIONS: Dextrose, Dilaudid, Lovenox, meropenem, Protonix, sodium bicarbonate, Zofran. ASSESSMENT AND PLAN: Ms. Lashell Felder is an 82-year-old lady with history of abdominal surgery with mesh placement for incarcerated umbilical hernia, repair of mesh. Now has hypertension, coronary artery disease, anxiety, diabetes, dementia, diverticulitis, hypercholesterolemia, admitted with pain, taken to OR, had a laparoscopic subtotal colectomy and subtotal jejunostomy, was started on norepinephrine initially with now septic shock with gastrointestinal source and mesenteric ischemia and adhesions and obstructions with acute kidney injury. The patient got vancomycin; getting meropenem, waiting for arenas culture. Overall prognosis is quite poor for this patient who is presenting with septic shock, gastrointestinal source, status post surgery. Appreciated ID input . Continue antibiotics as per ID; seen by GI, Dr. Jonathon Osman; history of small bowel obstruction, obstructive sigmoid colon, small bowel resection of necrotic bowel with creation of end ileostomy; on pressors; severe metabolic acidosis, started on bicarbonate drip; severe acidosis, on ventilator support. Continue present treatment. Michelle Naranjo MD [facility] # [id number] KATLYN
--- NOTE | 2018-02-26 16:36 | CT ---
PROCEDURE: CT Abdomen and Pelvis without intravenous contrast HISTORY: evaluate for acute intraabdominal bleeding COMPARISON: 02/24/2018. TECHNIQUE: CT scan of the abdomen and pelvis was performed without administration of intravenous contrast. Oral contrast was not administered. Coronal and sagittal reformatted images were obtained. Radiation dose: Total exam DLP = Total exam DLP = 917.38 mGy-cm. This CT exam was performed using one or more of the following dose reduction techniques: Automated exposure control, adjustment of the mA and/or kV according to patient size, and/or use of iterative reconstruction technique. FINDINGS: LOWER THORAX: There is consolidation in the left lower lobe. Small pleural effusions. LIVER: There is diffuse low-attenuation in the liver. Normal in size. No intrahepatic biliary ductal dilatation GALLBLADDER AND BILE DUCTS: There are no calcified gallstones. There is high attenuation fluid in the gallbladder fossa. PANCREAS: Diffuse fatty atrophy of the pancreas. SPLEEN: Normal in size. ADRENALS: No discrete nodule. KIDNEYS AND URETERS: Both kidneys right hyperdense. Simple cortical cysts in both kidneys. VASCULATURE: No aortic aneurysm. BOWEL: There is diffuse dilatation of fluid-filled small bowel loops. Status post colectomy and right lower quadrant ileostomy. PERITONEUM: Few small foci of air in the right mid abdomen, postsurgical changes. LYMPH NODES: No enlarged lymph nodes. BLADDER: Rolon catheter in place with subsequent decompression. REPRODUCTIVE: Unremarkable. BONES: No acute fracture. Within normal limits for the patient's age. OTHER FINDINGS: The nasogastric tube terminates in the stomach. There is a left abdominal percutaneous drainage catheter with tip in the right mid abdomen. Postsurgical changes in the abdominal wall IMPRESSION: 1. Acute hemorrhage in the gallbladder fossa. 2. Status post right lower quadrant ileostomy, diffused dilatation of fluid-filled small bowel loops. 3. Hyperdense kidneys, which may be related to contrast induced nephropathy underlying renal disease. 4. Small pleural effusions and left lower lobe consolidation . A preliminary report was provided by [facility].
--- NOTE | 2018-02-26 16:42 | CP.PCM.DIS ---
<Leslie Bryan - Last Filed: 02/26/18 16:40> Provider - Provider Date of Admission: 02/24/18 14:17 Attending physician: Michelle Naranjo MD Time Spent in preparation of Discharge (in minutes): 30 Hospital Course - Lab Results Lab Results: Micro Results 02/24/18 17:30 Naris MRSA Culture (Admit) - Final MRSA NOT DETECTED Most Recent Lab Values WBC 9.9 10^3/ul (4.5-11.0) D 02/26/18 01:50 RBC 2.85 10^6/uL (3.5-6.1) L 02/26/18 01:50 Hgb 8.8 g/dL (12.0-16.0) L D 02/26/18 01:50 Hct 28.5 % (36.0-48.0) L 02/26/18 01:50 MCV 100.0 fl (80.0-105.0) D 02/26/18 01:50 MCH 30.9 pg (25.0-35.0) 02/26/18 01:50 MCHC 30.9 g/dl (31.0-37.0) L 02/26/18 01:50 RDW 16.9 % (11.5-14.5) H 02/26/18 01:50 Plt Count 132 10^3/uL (120.0-450.0) 02/26/18 01:50 MPV 11.7 fl (7.0-11.0) H 02/26/18 01:50 Gran % 78.5 % (50.0-68.0) H 02/26/18 01:50 Lymph % (Auto) 18.7 % (22.0-35.0) L 02/26/18 01:50 [place] % (Auto) 2.5 % (1.0-6.0) 02/26/18 01:50 Eos % (Auto) 0.1 % (1.5-5.0) L 02/26/18 01:50 Baso % (Auto) 0.2 % (0.0-3.0) 02/26/18 01:50 Gran # 7.79 (1.4-6.5) H 02/26/18 01:50 Lymph # (Auto) 1.9 (1.2-3.4) 02/26/18 01:50 [place] # (Auto) 0.3 (0.1-0.6) 02/26/18 01:50 Eos # (Auto) 0.0 (0.0-0.7) 02/26/18 01:50 Baso # (Auto) 0.02 K/mm3 (0.0-2.0) 02/26/18 01:50 PT 28.1 SECONDS (9.4-12.5) H 02/25/18 12:00 INR 2.40 (0.93-1.08) H 02/25/18 12:00 APTT 30.7 Seconds (25.1-36.5) 02/25/18 12:00 pCO2 22 mm/Hg (35-45) L 02/25/18 07:20 pO2 69 mm/Hg (30-55) H 02/25/18 21:38 HCO3 7.3 mmol/L (21-28) L* 02/25/18 07:20 ABG pH 7.13 (7.35-7.45) L* 02/25/18 07:20 ABG Total CO2 8.0 mmol.L (22-28) L 02/25/18 07:20 ABG O2 Saturation 97.9 % (95-98) 02/25/18 07:20 ABG O2 Content 18.9 ML/dl (15-23) 02/24/18 19:10 ABG Base Excess -20.1 mmol/L (-2.0-3.0) L 02/25/18 07:20 ABG Hemoglobin 14.5 g/dL (11.7-17.4) 02/24/18 19:10 ABG Carboxyhemoglobin 0.6 % (0.5-1.5) 02/24/18 19:10 POC ABG HHb (Measured) 5.1 % (0-5) H 02/24/18 19:10 ABG Methemoglobin 1.8 % (0.0-3.0) 02/24/18 19:10 ABG O2 Capacity 19.9 mL/dl (16-24) 02/24/18 19:10 ABG Potassium 3.8 mmol/L (3.6-5.2) 02/25/18 07:20 VBG pH 7.05 (7.32-7.43) L* 02/25/18 21:38 VBG pCO2 30.0 (40-60) L 02/25/18 21:38 VBG HCO3 8.3 mmol/l (21-28) L 02/25/18 21:38 VBG Total CO2 9.2 mmol.L (22-28) L 02/25/18 21:38 VBG O2 Sat (Calc) 88.4 % (40-65) H 02/25/18 21:38 VBG Base Excess -21.1 mmol/L (0.0-2.0) L 02/25/18 21:38 VBG Potassium 7.2 mmol/L (3.6-5.2) H* 02/25/18 21:38 Hgb O2 Saturation 92.5 % (95.0-98.0) L 02/24/18 19:10 Sodium 142.0 mmol/L (132-148) 02/25/18 21:38 Chloride 107.0 mmol/L (98-107) 02/25/18 21:38 Glucose 242 mg/dl (65-105) H 02/25/18 21:38 Lactate 19.5 mmol/L (0.7-2.1) H* 02/25/18 21:38 FiO2 100 % 02/25/18 21:38 Sodium 144 mmol/L (132-148) 02/25/18 08:00 Potassium 5.5 mmol/L (3.6-5.0) H 02/25/18 08:00 Chloride 113 mmol/L (98-107) H 02/25/18 08:00 Carbon Dioxide 11 mmol/L (21-33) L 02/25/18 08:00 Anion Gap 25 (10-20) H 02/25/18 08:00 BUN 45 mg/dL (7-21) H 02/25/18 08:00 Creatinine 1.9 mg/dl (0.7-1.2) H 02/25/18 08:00 Est GFR ( Amer) 31 02/25/18 08:00 Est GFR (Non-Af Amer) 25 02/25/18 08:00 POC Glucose (mg/dL) 133 mg/dL (65-110) H 02/26/18 04:19 Random Glucose < 20 mg/dL (70-110) L* D 02/25/18 08:00 Lactic Acid 9.1 mmol/L (0.7-2.1) H* 02/24/18 19:27 Calcium 6.7 mg/dL (8.4-10.5) L* 02/25/18 08:00 Total Bilirubin 1.2 mg/dL (0.2-1.3) 02/25/18 08:00 AST 6863 U/L (14-36) H 02/25/18 08:00 ALT 4785 U/L (7-56) H 02/25/18 08:00 Alkaline Phosphatase 85 U/L (38-126) 02/25/18 08:00 Lactate Dehydrogenase 604 U/L (333-699) 02/24/18 12:30 Total Creatine Kinase 81 U/L (35-230) 02/24/18 12:30 Troponin I 0.09 ng/mL D 02/24/18 12:30 Total Protein 4.5 g/dL (5.8-8.3) L 02/25/18 08:00 Albumin 2.1 g/dL (3.0-4.8) L 02/25/18 08:00 Globulin 2.4 gm/dL 02/25/18 08:00 Albumin/Globulin Ratio 0.9 (1.1-1.8) L 02/25/18 08:00 Lipase 72 U/L (23-300) 02/24/18 12:30 Arterial Blood Potassium 3.8 mmol/L (3.6-5.2) 02/25/18 07:20 Venous Blood Potassium 7.2 mmol/L (3.6-5.2) H* 02/25/18 21:38 Urine Color Dark yellow (YELLOW) 02/24/18 12:35 Urine Appearance Slight-cloudy (CLEAR) 02/24/18 12:35 Urine pH 5.5 (4.7-8.0) 02/24/18 12:35 Ur Specific [place] 1.025 (1.005-1.035) 02/24/18 12:35 Urine Protein 100 mg/dL (<30 mg/dL) H 02/24/18 12:35 Urine Glucose (UA) 100 mg/dL (NEGATIVE) H 02/24/18 12:35 Urine Ketones 15 mg/dL (NEGATIVE) H 02/24/18 12:35 Urine Blood Trace-intact (NEGATIVE) H 02/24/18 12:35 Urine Nitrate Positive (NEGATIVE) H 02/24/18 12:35 Urine Bilirubin Moderate (NEGATIVE) H 02/24/18 12:35 Urine Urobilinogen 2.0 E.U./dL (<1 E.U./dL) H 02/24/18 12:35 Ur Leukocyte Esterase Trace Hima/uL (NEGATIVE) H 02/24/18 12:35 Urine RBC 0 - 2 /hpf (0-2) 02/24/18 12:35 Urine WBC 0 - 2 /hpf (0-6) 02/24/18 12:35 Ur Epithelial Cells 0 - 2 /hpf (0-5) 02/24/18 12:35 Urine Bacteria Small (NEG) 02/24/18 12:35 Blood Type A POSITIVE 02/24/18 23:10 Antibody Screen Negative 02/24/18 23:10 Crossmatch See Detail 02/24/18 23:10 BBK History Checked Patient has bt 02/24/18 23:10 - Hospital Course Hospital Course: 82 yr female w/ history of AMS, CAD, Dementia, DM II, HTN, Insomnia, Osteopenia, Hyperlipidemia. Pt admitted to [facility] with diffuse abdominal pain related to Small bowel obstuction and anxiety related to sepsis. She underwent laprascopic subtotal colectomy and subtotal jejunostomy. Consequently, pt experienced septic shock. On 02/26/18, pt related to multiple co- morbidities. Reviewed: CXR = WNL CT abd/pelvis = segmental narrowing of the sigmoid at the site of prior diverticular disease/diverticulitis, proximal dilatation of the colon & Small bowel identified indicative of earlier incomplete bowel obstruction, underlying stricuture, pathologic narrowing of sigmoid Abd xray = 02/24 NG tube in proximal stomach CT head = findings compatible w. diffuse hypoxic ischemia insult ECG = ABNORMAL, ST, nonspecific ST abnormality - Date & Time of H&P Date of H&P: 02/26/18 Time of H&P: 11:30 Discharge Exam - Head Exam Head Exam: ATRAUMATIC, NORMOCEPHALIC Discharge Plan - Follow Up Plan Condition: GUARDED Disposition: WITH WITHOUT AUTOPSY Instructions: Acute Abdominal Pain (DC), Acute Abdominal Pain (GEN) <Marcella,Michelle - Last Filed: 02/26/18 17:45> Provider - Provider Date of Admission: 02/24/18 14:17 Attending physician: Michelle Naranjo MD Hospital Course - Lab Results Lab Results: Micro Results 02/24/18 17:30 Naris MRSA Culture (Admit) - Final MRSA NOT DETECTED Most Recent Lab Values WBC 9.9 10^3/ul (4.5-11.0) D 02/26/18 01:50 RBC 2.85 10^6/uL (3.5-6.1) L 02/26/18 01:50 Hgb 8.8 g/dL (12.0-16.0) L D 02/26/18 01:50 Hct 28.5 % (36.0-48.0) L 02/26/18 01:50 MCV 100.0 fl (80.0-105.0) D 02/26/18 01:50 MCH 30.9 pg (25.0-35.0) 02/26/18 01:50 MCHC 30.9 g/dl (31.0-37.0) L 02/26/18 01:50 RDW 16.9 % (11.5-14.5) H 02/26/18 01:50 Plt Count 132 10^3/uL (120.0-450.0) 02/26/18 01:50 MPV 11.7 fl (7.0-11.0) H 02/26/18 01:50 Gran % 78.5 % (50.0-68.0) H 02/26/18 01:50 Lymph % (Auto) 18.7 % (22.0-35.0) L 02/26/18 01:50 [place] % (Auto) 2.5 % (1.0-6.0) 02/26/18 01:50 Eos % (Auto) 0.1 % (1.5-5.0) L 02/26/18 01:50 Baso % (Auto) 0.2 % (0.0-3.0) 02/26/18 01:50 Gran # 7.79 (1.4-6.5) H 02/26/18 01:50 Lymph # (Auto) 1.9 (1.2-3.4) 02/26/18 01:50 [place] # (Auto) 0.3 (0.1-0.6) 02/26/18 01:50 Eos # (Auto) 0.0 (0.0-0.7) 02/26/18 01:50 Baso # (Auto) 0.02 K/mm3 (0.0-2.0) 02/26/18 01:50 PT 28.1 SECONDS (9.4-12.5) H 02/25/18 12:00 INR 2.40 (0.93-1.08) H 02/25/18 12:00 APTT 30.7 Seconds (25.1-36.5) 02/25/18 12:00 pCO2 22 mm/Hg (35-45) L 02/25/18 07:20 pO2 69 mm/Hg (30-55) H 02/25/18 21:38 HCO3 7.3 mmol/L (21-28) L* 02/25/18 07:20 ABG pH 7.13 (7.35-7.45) L* 02/25/18 07:20 ABG Total CO2 8.0 mmol.L (22-28) L 02/25/18 07:20 ABG O2 Saturation 97.9 % (95-98) 02/25/18 07:20 ABG O2 Content 18.9 ML/dl (15-23) 02/24/18 19:10 ABG Base Excess -20.1 mmol/L (-2.0-3.0) L 02/25/18 07:20 ABG Hemoglobin 14.5 g/dL (11.7-17.4) 02/24/18 19:10 ABG Carboxyhemoglobin 0.6 % (0.5-1.5) 02/24/18 19:10 POC ABG HHb (Measured) 5.1 % (0-5) H 02/24/18 19:10 ABG Methemoglobin 1.8 % (0.0-3.0) 02/24/18 19:10 ABG O2 Capacity 19.9 mL/dl (16-24) 02/24/18 19:10 ABG Potassium 3.8 mmol/L (3.6-5.2) 02/25/18 07:20 VBG pH 7.05 (7.32-7.43) L* 02/25/18 21:38 VBG pCO2 30.0 (40-60) L 02/25/18 21:38 VBG HCO3 8.3 mmol/l (21-28) L 02/25/18 21:38 VBG Total CO2 9.2 mmol.L (22-28) L 02/25/18 21:38 VBG O2 Sat (Calc) 88.4 % (40-65) H 02/25/18 21:38 VBG Base Excess -21.1 mmol/L (0.0-2.0) L 02/25/18 21:38 VBG Potassium 7.2 mmol/L (3.6-5.2) H* 02/25/18 21:38 Hgb O2 Saturation 92.5 % (95.0-98.0) L 02/24/18 19:10 Sodium 142.0 mmol/L (132-148) 02/25/18 21:38 Chloride 107.0 mmol/L (98-107) 02/25/18 21:38 Glucose 242 mg/dl (65-105) H 02/25/18 21:38 Lactate 19.5 mmol/L (0.7-2.1) H* 02/25/18 21:38 FiO2 100 % 02/25/18 21:38 Sodium 144 mmol/L (132-148) 02/25/18 08:00 Potassium 5.5 mmol/L (3.6-5.0) H 02/25/18 08:00 Chloride 113 mmol/L (98-107) H 02/25/18 08:00 Carbon Dioxide 11 mmol/L (21-33) L 02/25/18 08:00 Anion Gap 25 (10-20) H 02/25/18 08:00 BUN 45 mg/dL (7-21) H 02/25/18 08:00 Creatinine 1.9 mg/dl (0.7-1.2) H 02/25/18 08:00 Est GFR ( Amer) 31 02/25/18 08:00 Est GFR (Non-Af Amer) 25 02/25/18 08:00 POC Glucose (mg/dL) 133 mg/dL (65-110) H 02/26/18 04:19 Random Glucose < 20 mg/dL (70-110) L* D 02/25/18 08:00 Lactic Acid 9.1 mmol/L (0.7-2.1) H* 02/24/18 19:27 Calcium 6.7 mg/dL (8.4-10.5) L* 02/25/18 08:00 Total Bilirubin 1.2 mg/dL (0.2-1.3) 02/25/18 08:00 AST 6863 U/L (14-36) H 02/25/18 08:00 ALT 4785 U/L (7-56) H 02/25/18 08:00 Alkaline Phosphatase 85 U/L (38-126) 02/25/18 08:00 Lactate Dehydrogenase 604 U/L (333-699) 02/24/18 12:30 Total Creatine Kinase 81 U/L (35-230) 02/24/18 12:30 Troponin I 0.09 ng/mL D 02/24/18 12:30 Total Protein 4.5 g/dL (5.8-8.3) L 02/25/18 08:00 Albumin 2.1 g/dL (3.0-4.8) L 02/25/18 08:00 Globulin 2.4 gm/dL 02/25/18 08:00 Albumin/Globulin Ratio 0.9 (1.1-1.8) L 02/25/18 08:00 Lipase 72 U/L (23-300) 02/24/18 12:30 Arterial Blood Potassium 3.8 mmol/L (3.6-5.2) 02/25/18 07:20 Venous Blood Potassium 7.2 mmol/L (3.6-5.2) H* 02/25/18 21:38 Urine Color Dark yellow (YELLOW) 02/24/18 12:35 Urine Appearance Slight-cloudy (CLEAR) 02/24/18 12:35 Urine pH 5.5 (4.7-8.0) 02/24/18 12:35 Ur Specific [place] 1.025 (1.005-1.035) 02/24/18 12:35 Urine Protein 100 mg/dL (<30 mg/dL) H 02/24/18 12:35 Urine Glucose (UA) 100 mg/dL (NEGATIVE) H 02/24/18 12:35 Urine Ketones 15 mg/dL (NEGATIVE) H 02/24/18 12:35 Urine Blood Trace-intact (NEGATIVE) H 02/24/18 12:35 Urine Nitrate Positive (NEGATIVE) H 02/24/18 12:35 Urine Bilirubin Moderate (NEGATIVE) H 02/24/18 12:35 Urine Urobilinogen 2.0 E.U./dL (<1 E.U./dL) H 02/24/18 12:35 Ur Leukocyte Esterase Trace Hima/uL (NEGATIVE) H 02/24/18 12:35 Urine RBC 0 - 2 /hpf (0-2) 02/24/18 12:35 Urine WBC 0 - 2 /hpf (0-6) 02/24/18 12:35 Ur Epithelial Cells 0 - 2 /hpf (0-5) 02/24/18 12:35 Urine Bacteria Small (NEG) 02/24/18 12:35 Blood Type A POSITIVE 02/24/18 23:10 Antibody Screen Negative 02/24/18 23:10 Crossmatch See Detail 02/24/18 23:10 BBK History Checked Patient has bt 02/24/18 23:10 - Hospital Course Hospital Course: chart meds and labs , noted , agreed all above ,
--- NOTE | 2018-03-09 12:26 | OP ---
PROCEDURE DATE: 02/24/2018 PREOPERATIVE DIAGNOSIS: Intraabdominal catastrophe. POSTOPERATIVE DIAGNOSIS: Intraabdominal catastrophe with infarction of the small bowel and colon. OPERATION PERFORMED: Laparotomy, subtotal colectomy, take down of the splenic flexure, massive small bowel resection, jejunostomy. SURGEON: Sonu Pérez MD. INSURANCE CHECKER: Dr. Canales. ESTIMATED BLOOD LOSS: 100 mL. FINDINGS: bowel. DESCRIPTION OF PROCEDURE: In the operating room, the patient was identified by name, name of the procedure, laterality, my janina, and the consent. The abdomen was entered rapidly after the successful timeout. A midline incision was made that was extended as necessary. On entering the abdomen, there was free fluid that was smelt as bowel. The incisions were opened and most of the bowel was . It was , necrotic, and . About 4 feet from the ligament of Treitz, there was transition zone. The transition zone was marked and the small bowel was divided at this point and all small bowel between this janina and the cecum were transected with the LigaSure, divided at several areas, required a suture ligature but the closure was excellent. Cecum was examined, it was from an area deep in the pelvis and was probably site of the stricture. It was divided there with TA. From this point on, there was mobilization of the splenic flexure and at the cecum, this entire area was taken with serial applications of the LigaSure and the abdomen was irrigated and dried and a jejunostomy was made through questionable bowel, it was brought up to the left upper quadrant and it seemed to be viable but questionable. The incision was closed as a #1 PDS above and below and tied in the middle. The patient was taken in critical condition, not expecting to survive. If she does, we will re-operate in 24 to 48 hours. All bowel that was left behind looks viable, but the distal part is somewhat questionable. Sonu Pérez MD
== END 2018-02-26 04:32 | DRG 853 ==
LOC: ED 11:25 → ERH 14:17 → ICU 17:32
PROVIDERS: ADMIT Internal Medicine; ATTEND Internal Medicine
PROC: 0DT80ZZ Resection of Small Intestine, Open Approach (ICD-10-PCS; 2018-02-24)
PROC: 0D1A0Z4 Bypass Jejunum to Cutaneous, Open Approach (ICD-10-PCS; 2018-02-24)
PROC: 5A1935Z Respiratory Ventilation, Less than 24 Consecutive Hours (ICD-10-PCS; 2018-02-24)
PROC: 0BH17EZ Insertion of Endotracheal Airway into Trachea, Via Natural or Artificial Opening (ICD-10-PCS; 2018-02-24)
PROC: 0DTE0ZZ Resection of Large Intestine, Open Approach (ICD-10-PCS; principal; 2018-02-24 23:30)
DX: A41.9 Sepsis, unspecified organism (principal); R65.21 Severe sepsis with septic shock; K55.049 Acute infarction of large intestine, extent unspecified; J96.91 Respiratory failure, unspecified with hypoxia; E87.2 Acidosis; N17.9 Acute kidney failure, unspecified; K56.600 Partial intestinal obstruction, unspecified as to cause; K59.39 Other megacolon; I10 Essential (primary) hypertension; E86.0 Dehydration; F03.90 Unspecified dementia, unspecified severity, without behavioral disturbance, psychotic disturbance, mood disturbance, and anxiety; E11.65 Type 2 diabetes mellitus with hyperglycemia; F41.9 Anxiety disorder, unspecified; K44.9 Diaphragmatic hernia without obstruction or gangrene; I25.10 Atherosclerotic heart disease of native coronary artery without angina pectoris; K29.70 Gastritis, unspecified, without bleeding; K20.9 Esophagitis, unspecified; Z66 Do not resuscitate; E78.00 Pure hypercholesterolemia, unspecified